=== PATIENT | female | born 1930 | race Caucasian/White ===

== ENCOUNTER 2017-05-02 15:18 | Emergency (ER) | payer MEDICARE ==
--- NOTE | 2017-05-02 17:16 | RAD ---
PORTABLE CHEST ONE VIEW: 05/02/17 at 4:18 p.m. HISTORY: Cough. Bilateral leg pain. FINDINGS/IMPRESSION: Comparison is made with exam of 02/24/15. The heart size is normal. The aorta is tortuous. Small bilateral pleural effusions may be present. N o lobar consolidation, pneumothoraces or kristie pulmonary effusions are identified. POS: [facility]
--- NOTE | 2017-05-02 17:21 | RAD ---
RIGHT FOOT THREE VIEWS: 05/02/17 HISTORY: Trauma, right foot pain. FINDINGS/IMPRESSION: No fracture or dislocation is seen. A plantar calcaneal spur is present. POS: [facility]
[2017-05-02 18:44] LABS: #Eosinphils 0.2 thou/uL (0.0-0.7); #Lymphocytes 1.1 thou/uL (1.20-3.40); #Monocytes 0.7 thou/uL (0.11-0.59); #Neutrophils 6.5 thou/uL (1.40-6.50); %Basophils 0.5 % (0.0-1.0); %Eosinophils 2.2 % (0.0-10.0); %Lymphocytes 12.3 % (21.0-51.0); %Monocytes 8.3 % (0.0-10.0); Hematocrit 34.5 % (36.0-47.0); Mean Platelet Volume 8.1 fL (7.4-10.4); Red Blood Cell (RBC) Count 3.57 mill/uL (4.20-5.40); White Blood Cell (WBC) Count 8.5 thou/uL (4.8-10.8)
[2017-05-02 19:04] LABS: Anion Gap 14 mmol/L (10-20); BUN (Urea Nitrogen) 22 mg/dL (9.8-20.1); Calc. Creatinine Clearance 0 mL/min (70-130); Calcium 10.1 mg/dL (7.8-10.44); Carbon Dioxide 36 mmol/L (23-31); Chloride 95 mmol/L (98-107); Estimated GFR-MDRD 51
== END 2017-05-02 19:27 | disposition home or self-care (01) ==
LOC: ERS 15:18
DX: S90.31XA Contusion of right foot, initial encounter (principal); I50.9 Heart failure, unspecified; I48.91 Unspecified atrial fibrillation; J44.9 Chronic obstructive pulmonary disease, unspecified; Z79.82 Long term (current) use of aspirin; Z79.899 Other long term (current) drug therapy; Z87.891 Personal history of nicotine dependence
CPT/HCPCS: 36415; 71010; 80048; 85025; 93005

== ENCOUNTER 2017-09-07 12:29 | Emergency (ER) | payer MEDICARE ==
[2017-09-07 13:47] LABS: #Basophils 0.1 thou/uL (0.0-0.2); #Eosinphils 0.1 thou/uL (0.0-0.7); #Lymphocytes 0.7 thou/uL (1.20-3.40); #Monocytes 0.6 thou/uL (0.11-0.59); %Basophils 0.7 % (0.0-1.0); %Eosinophils 1.1 % (0.0-10.0); %Lymphocytes 8.5 % (21.0-51.0); %Monocytes 6.7 % (0.0-10.0); %Neutrophils 83.1 % (42.0-75.0); Hemoglobin 10.7 g/dL (12.0-16.0); Mean Corpuscular HGB CONC 30.9 g/dL (32.0-36.0); Mean Corpuscular Hemoglobin 30.2 pg (27.0-31.0); Mean Corpuscular Volume 97.8 fl (81.0-99.0); Mean Platelet Volume 7.9 fL (7.4-10.4); Platelet Count 162 thou/uL (130-400); RBC Distribution Width 12.1 % (11.5-14.5); Red Blood Cell (RBC) Count 3.56 mill/uL (4.20-5.40); White Blood Cell (WBC) Count 8.4 thou/uL (4.8-10.8)
--- NOTE | 2017-09-07 14:02 | RAD ---
PA AND LATERAL CHEST: Date: 09/07/17 HISTORY: Dyspnea, COPD, shortness of breath. FINDINGS: Comparison made with exam of 05/02/17. The heart size is normal. The aorta is tortuous. Changes of COPD are again seen. No lobar consolidati on, pneumothoraces, or pleural effusions are seen. There are degenerative changes in the spine. IMPRESSION: No acute process. POS: [facility]
[2017-09-07 14:11] LABS: ALT (SGPT) 12 U/L (8-55); AST (SGOT) 17 U/L (5-34); Albumin 3.9 g/dL (3.4-4.8); Alkaline Phosphatase 89 U/L (40-150); BUN (Urea Nitrogen) 21 mg/dL (9.8-20.1); Bilirubin, Total 0.4 mg/dL (0.2-1.2); Calc. Creatinine Clearance 0 mL/min (70-130); Calcium 10.2 mg/dL (7.8-10.44); Estimated GFR-MDRD 56; Globulin 3.4 g/dL (2.4-3.5); Glucose 89 mg/dL (83-110); Protein, Total 7.3 g/dL (6.0-8.3)
[2017-09-07 14:18] LABS: CKMB 2.1 ng/mL (0-6.6); Troponin I 0.012 ng/mL (< 0.028)
[2017-09-07 14:20] LABS: Anion Gap 15 mmol/L (10-20); Carbon Dioxide 35 mmol/L (23-31); Chloride 95 mmol/L (98-107); Potassium 4.5 mmol/L (3.5-5.1); Sodium 140 mmol/L (136-145)
== END 2017-09-07 17:17 | disposition home or self-care (01) ==
LOC: ERS 12:29
DX: R42 Dizziness and giddiness (principal); B37.2 Candidiasis of skin and nail; J44.9 Chronic obstructive pulmonary disease, unspecified; I50.9 Heart failure, unspecified; I48.91 Unspecified atrial fibrillation; F17.210 Nicotine dependence, cigarettes, uncomplicated
CPT/HCPCS: 36415; 71046; 80053; 82553; 83880; 84484; 85025; 93005; 94760

== ENCOUNTER 2017-09-19 22:50 | Inpatient (IN) | payer MEDICARE ==
--- NOTE | 2017-09-19 23:51 | CT ---
CT HEAD WITHOUT CONTRAST 09/19/17 Multiple axial tomograms obtained through head without IV enhancement. HISTORY: Unwitnessed fall with dizziness and injury to head. Mild cortical volume loss. Moderately severe chronic ischemic white matter change. No evidence of acu te hemorrhage. No evidence of acute mass or infarction. IMPRESSION: There are chronic changes consistent with age. No acute process is identified. POS: [facility]
--- NOTE | 2017-09-19 23:55 | CT ---
CT CERVICAL SPINE: 09/19/17 Multiple axial tomograms obtained through the cervical spine with multiplanar reconstruction. HISTORY: Unwitnessed fall with dizziness. Hit patient's head with injury to head and neck. There are moderately severe degenerative changes involving the mid cervical spine. Loss of disc space is prominent at C3-4, C4-5, C5-6 and C6-7 levels. There is anterior subluxation of C3 on C4 measure d at approximately 3 to 4 mm. Slight posterior subluxation at C5-6. Spondylitic changes are prominent . Foraminal stenosis is present due to these hypertrophic changes at all of these levels. Encroachmen t on the cord is present at C4-5 and C5-6 due to the hypertrophic spondylitic change. No acute fracture identified. IMPRESSION: Moderate to severe degenerative changes of the cervical spine. Subluxations as noted above appear deg enerative. No acute fracture identified. POS: [facility]
--- NOTE | 2017-09-20 00:02 | CT ---
CT SCAN LUMBAR SPINE: 09/19/17 Multiple axial tomograms obtained through the lumbar spine with multiplanar reconstruction. HISTORY: Unwitnessed fall with injury to back. There is mild compression deformity of the L1 vertebra. This is an age indeterminate compression. The re is mild loss of central and anterior height estimated in the 20% range. There are end plate deform ities involving both superior and inferior end plates of L1 which contribute to the loss of central h eight. There is no retropulsion. The other lumbar vertebrae maintain height. There is a slight anterolisthesis at L4-5. There is loss of disc space at L5-S1. Prominent facet hypertrophy is seen throughout the lumbar spine, most pronoun trevin at L4-5 and L5-S1. Evidence of spondylolysis posteriorly at L5-S1. Moderate to severe central canal stenosis at L4-5 due to the disc bulge and the hypertrophic change. Diffuse disc bulge and spondylosis at L5-S1 also results in moderate central canal stenosis. IMPRESSION: 1. Mild compression of the L1 vertebra is age indeterminate. 2. There is osteopenia and degenerative changes throughout the lumbar spine as described above. Moderate central canal stenosis at L4-5 as noted. 3. 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 POS: [facility]
--- NOTE | 2017-09-20 00:05 | CT ---
CT SCAN THORACIC SPINE: 09/19/17 Multiple axial tomograms obtained through the thoracic spine with multiplanar reconstruction. FINDINGS: There is severe compression deformity of the T6 vertebra. This is a wedge type compression with sever e loss of central and anterior height estimated in the 75% range. There is irregularity of the breaker operator ior cortex of this vertebra which might indicate an acute compression fracture. Minimal retropulsion at the posterior cortex; however, no central canal stenosis. The other thoracic vertebrae maintain height and alignment. There are degenerative changes at all lev els. No other compression fracture identified. IMPRESSION: Severe compression deformity of the T6 vertebra. Buckling of the posterior cortex is seen which may i ndicate an acute compression fracture. Slight retropulsion; however, no central canal stenosis. POS: [facility]
--- NOTE | 2017-09-20 00:07 | RAD ---
PORTABLE CHEST: 09/19/17 HISTORY: Unwitnessed fall with dizziness. Mild cardiomegaly. Mild vascular congestion. Interstitial prominence suggests mild interstitial edema . No confluent infiltrate. IMPRESSION: Cardiomegaly with mild vascular congestion. POS: [facility]
[2017-09-20 00:29] LABS: #Lymphocytes 0.3 thou/uL (1.20-3.40); #Monocytes 0.7 thou/uL (0.11-0.59); %Basophils 0.2 % (0.0-1.0); %Eosinophils 0.3 % (0.0-10.0); %Lymphocytes 2.8 % (21.0-51.0); %Monocytes 5.4 % (0.0-10.0); %Neutrophils 91.3 % (42.0-75.0); Hemoglobin 10.8 g/dL (12.0-16.0); Mean Corpuscular HGB CONC 31.5 g/dL (32.0-36.0); Mean Corpuscular Volume 98.2 fl (81.0-99.0); Mean Platelet Volume 8.4 fL (7.4-10.4); Platelet Count 137 thou/uL (130-400); RBC Distribution Width 12.4 % (11.5-14.5); White Blood Cell (WBC) Count 12.1 thou/uL (4.8-10.8)
[2017-09-20 00:34] LABS: ALT (SGPT) 17 U/L (8-55); AST (SGOT) 21 U/L (5-34); Alkaline Phosphatase 94 U/L (40-150); Anion Gap 14 mmol/L (10-20); BUN (Urea Nitrogen) 27 mg/dL (9.8-20.1); Bilirubin, Total 0.3 mg/dL (0.2-1.2); Calc. Creatinine Clearance 0 mL/min (70-130); Calcium 9.6 mg/dL (7.8-10.44); Carbon Dioxide 35 mmol/L (23-31); Chloride 98 mmol/L (98-107); Estimated GFR-MDRD 49; Globulin 3.6 g/dL (2.4-3.5); Glucose 143 mg/dL (83-110); Potassium 4.8 mmol/L (3.5-5.1); Protein, Total 7.6 g/dL (6.0-8.3); Sodium 142 mmol/L (136-145)
[2017-09-20 00:39] LABS: CKMB 2.7 ng/mL (0-6.6); Troponin I 0.047 ng/mL (< 0.028)
[2017-09-20] MEDS ORDERED: Acetaminophen 500 MG TAB ONE (01:42)
[2017-09-20] MEDS ORDERED: Furosemide 40 MG/4 ML VIAL ONE (01:44)
[2017-09-20] MEDS ORDERED: Ondansetron HCl/PF 4 MG/2 ML Vial IVP PRN ×2 (03:20→03:28)
[2017-09-20] MEDS ORDERED: Acetaminophen 325 MG TAB PO PRN (03:20)
[2017-09-20] MEDS ORDERED: Ondansetron ODT 4 MG TAB SL PRN (03:20)
[2017-09-20] MEDS ORDERED: Morphine IR 10 MG/5 ML UDCUP PO PRN (03:24)
[2017-09-20] MEDS ORDERED: Ondansetron ODT 4 MG TAB PO PRN (03:28)
[2017-09-20] MEDS ORDERED: Dextrose 50% Abboject 50 ML SYRINGE SLOW IVP PRN (03:28)
[2017-09-20] MEDS ORDERED: Promethazine HCl 25 MG/ML VIAL IM PRN (03:28)
[2017-09-20] MEDS ORDERED: Dextrose 5% in Water 1,000 ML IV PRN (03:28)
[2017-09-20] MEDS ORDERED: hydrALAZINE 20 MG/ML VIAL SLOW IVP PRN (03:28)
[2017-09-20 04:49] VITALS: BMI 25.9
[2017-09-20 05:03] LABS: #Lymphocytes 0.6 thou/uL (1.20-3.40); #Monocytes 0.8 thou/uL (0.11-0.59); %Basophils 0.2 % (0.0-1.0); %Eosinophils 0.3 % (0.0-10.0); %Monocytes 7.3 % (0.0-10.0); %Neutrophils 87.1 % (42.0-75.0); Hemoglobin 9.9 g/dL (12.0-16.0); Mean Corpuscular HGB CONC 31.7 g/dL (32.0-36.0); Mean Corpuscular Hemoglobin 30.9 pg (27.0-31.0); Mean Corpuscular Volume 97.6 fl (81.0-99.0); Mean Platelet Volume 8.3 fL (7.4-10.4); Platelet Count 128 thou/uL (130-400); RBC Distribution Width 12.3 % (11.5-14.5); Red Blood Cell (RBC) Count 3.21 mill/uL (4.20-5.40); White Blood Cell (WBC) Count 11.5 thou/uL (4.8-10.8)
[2017-09-20 05:19] LABS: BUN (Urea Nitrogen) 25 mg/dL (9.8-20.1); Calc. Creatinine Clearance 42 mL/min (70-130); Calcium 9.2 mg/dL (7.8-10.44); Estimated GFR-MDRD 56; Glucose 118 mg/dL (83-110)
[2017-09-20 05:30] LABS: Anion Gap 14 mmol/L (10-20); Carbon Dioxide 35 mmol/L (23-31); Chloride 98 mmol/L (98-107); Potassium 4.4 mmol/L (3.5-5.1); Sodium 143 mmol/L (136-145)
[2017-09-20] MEDS: Levothyroxine Sodium 100 MCG TAB PO SCH (06:01)
--- NOTE | 2017-09-20 06:57 | HP ---
Leon Craven PA-C, dictating for Jim Teran MD DATE OF SERVICE: 09/20/2017 CHIEF COMPLAINT: Evaluation status post fall. HISTORY OF PRESENT ILLNESS: An 87-year-old female with history of atrial fibrillation, COPD, CHF, no w presented with 2 falls today. The patient reports she began to feel dizzy upon standing today and she then subsequently fell backwards. Hitting her upper back, no hip pain, no LOC or head injury at this time. The patient denies any headache, chest pain, or shortness of breath prior to or after the fall. PAST MEDICAL HISTORY: Include COPD, CHF, atrial fibrillation, macular degeneration. She is on home O2. PAST SURGICAL HISTORY: She denies. PSYCHIATRIC HISTORY: She denies. SOCIAL HISTORY: Denies any alcohol or drug use. She is a former tobacco user. REVIEW OF SYSTEMS: All 10 systems reviewed otherwise stated in HPI were negative. PHYSICAL EXAMINATION: VITAL SIGNS: Current vital signs, blood pressure 144/49, heart rate 94, respiratory rate 25, tempera ture 98.8, 4/10 pain, 95% on 2 liters of oxygen. HEENT: Atraumatic, normocephalic. No JVD, no masses. Trachea is midline. RESPIRATORY: She has got rhonchi/slight rales in the bases of the lungs throughout bilaterally. ABDOMEN: Soft, nontender, nondistended. BACK: Back pain. She is kyphotic. She has tenderness in the midline of the mid back. MUSCULOSKELETAL: Upper extremities void of any injury, 5/5 strength. Lower extremity, 5/5 strength. Sensation is intact. NEUROLOGIC: GCS 15. LABORATORY DATA: Hematology: WBC of 12.1, hemoglobin of 10.8, hematocrit 34.4, platelet count 137. Chemistries: Sodium 142, potassium 4.8, chloride 98, bicarbonate 35, BUN 27, creatinine 1.06, gluco se 143. RADIOLOGIC FINDINGS: Thoracic CT showed a T6 severe burst fracture with buckling into the posterior cortex, acute compression fracture. Lumbar spine CT showed L1 mild compression fracture, age indeter minate. Osteopenia and abdominal aorta is calcified tortuous and there was aneurysm dilatation measu ring up to 3 cm. Cervical spine, moderate to severe degenerative changes cervical spine, no acute fracture. Brain CT, no acute process. Chest x-ray showed mild vascular congestion, cardiomegaly. ASSESSMENT: 1. Status post fall, ground level. 2. Presyncope. 3. Congestive heart failure exacerbation. 4. C6 severe compression fracture. 5. L1 compression fracture. 6. History of chronic obstructive pulmonary disease. 7. On home O2. PLAN: Plan will be to continue to place the patient in signals collector/analyst for 24 hours. We will inve stigate possible syncopal reasons. Consult Neurosurgery for the spinal fracture. Optimize her pain with p.o. and IV analgesics. Restart home medications when available. Place patient on gastritis DV T prophylaxis when appropriate. Consult PT and OT, once Neurosurgery recommendations are in. DISCHARGE DISPOSITION: Will be a consult with case management. The above patient was discussed with Dr. Teran and agreed with the above plan.
--- NOTE | 2017-09-20 08:20 | CON ---
DATE OF CONSULTATION: 09/20/2017 CHIEF COMPLAINT: Evaluation post fall, status post T6 compression fracture with 75% loss of vertical height. HISTORY OF PRESENT ILLNESS: Ms. Dominguez is an 87-year-old female with a history of atrial fibrillati on, COPD, CHF, who now presented with 2 days of falls. The patient has been falling intermittently i n the past week; however, yesterday she began to feel dizzy upon standing and subsequently fell backw ards and landed on her backside. She has no hip pain. Denies any loss of consciousness or head inju ry at this time. The patient denies any headaches, chest pain, shortness of breath prior to the fall or after the fall. On physical exam, she has tenderness to palpation of the thoracic spine or the T6 region. CT of the thoracic spine shows a T6 compression fracture with vertical height loss at 75%. Neurosurgery was co nsulted for this finding on CT scan. PAST MEDICAL HISTORY: Includes COPD, CHF, atrial fibrillation, macular degeneration, and she is curr ently on home oxygen. PSYCHIATRIC HISTORY: Denies any psychiatric history. PAST SURGICAL HISTORY: Denies any surgical history. SOCIAL HISTORY: Denies alcohol or drug use. She is a former tobacco user. REVIEW OF SYSTEMS: The patient reports thoracic back pain. Reports a presyncopal episode and fall. All other review of systems negative, unless stated in the above HPI. PHYSICAL EXAMINATION: VITAL SIGNS: Reviewed. Her temperature is 97.9, pulse 77, respirations 24, O2 flow rate is 2 on yuly al cannula, blood pressure is 151/65. Current pain is 6/10. GENERAL: The patient is alert and oriented x4. She is in no acute distress at this time. Daughter is in room and she has GCS 15. HEENT: Normocephalic, atraumatic. Hearing intact. Moist mucous membranes. Trachea is midline. EYES: Pupils are equal and reactive to light. Extraocular muscles are intact. Sclerae is white, no nicteric. CARDIOVASCULAR: The patient has regular rate and rhythm. EXTREMITIES: No distal cyanosis or clubbing noted in the upper and lower extremities bilaterally. P ulses are +2 in the brachial and radial pulses in the upper extremities and posterior tibial pulses i n the lower extremities. RESPIRATORY: The patient has bilateral symmetric chest rise. Appears to have no shortness of breath . NEUROLOGIC: Cranial nerves II-XII are grossly intact. Her speech is fluent and she answers question s appropriately. She has no dermatomal or level of sensory loss in the thoracic spine or lower extre mities. She is tender to palpation of the midline lumbar spine. There are no focal or sensory defic its. She has severe degenerative changes of the cervical spine. No acute fracture. CT of the brain shows no acute process. Chest x-ray shows mild vascular congestion and cardiomegaly. IMPRESSION: Status post fall from the ground level, presyncopal episode; congestive heart failure ex acerbation; T7 severe compression fracture of 75% height loss; L1 compression fracture, age indetermi nereida; history of chronic obstructive pulmonary disease, on home oxygen. PLAN: From a neurosurgical standpoint, there is no surgical emergency at this time. Patient is neur ologically intact. We will treat this fracture with a clam-shell TLSO brace to increase abdominal pr essure and limit rotation and movement of the T7 vertebrae, which should decrease the pain. We will get an x-ray in the TLSO brace after it is applied and get repeat x-rays at 4 weeks and 3 months to tony sotelo to see if the vertebrae is healing and the alignment is still adequate. In the meantime, pain m anagement is reasonable. If there are any further questions, please feel free to contact Neurosurger alex
[2017-09-20 08:37] LABS: CKMB 2.4 ng/mL (0-6.6); Troponin I 0.092 ng/mL (< 0.028)
[2017-09-20] MEDS: Famotidine 20 MG TAB PO SCH ×2 (09:00→22:09)
[2017-09-20] MEDS: Ferrous Sulfate 325 MG TAB PO SCH (09:01)
[2017-09-20] MEDS: Furosemide 40 MG TAB PO SCH (09:01)
[2017-09-20] MEDS: Amiodarone 200 MG TAB PO SCH (09:01)
[2017-09-20] MEDS: Calcium Carbonate + Vit D 1 TAB PO SCH ×2 (09:01→22:08)
[2017-09-20] MEDS: Potassium Chloride 20 MEQ TAB PO SCH ×2 (09:01→22:12)
[2017-09-20 11:34] LABS: CKMB 2.4 ng/mL (0-6.6); Troponin I 0.065 ng/mL (< 0.028)
[2017-09-20] MEDS ORDERED: traMADol HCl 50 MG TAB PO PRN (13:17)
--- NOTE | 2017-09-20 15:25 | PRG ---
DATE OF SERVICE: 09/20/2017 ATTENDING PHYSICIAN: Dr. Moe Chavez. SUBJECTIVE: The patient is an 87-year-old female, who reports that she got dizzy and had 2 falls yesterday. She apparently fell backwards hitting her upper back. She had upper back pain at that time. She was transported to [facility] where workup identified a T6 compression fracture. She was admitted to the hospital by Trauma services. A consult was made to Dr. Short. She was seen by Neurosurgery. No neurosurgical intervention was recommended. She was recommended for a TLSO brace placement. OBJECTIVE: VITAL SIGNS: Temperature 98.9, pulse 74, respirations 18, O2 sat 95% on 2 liters nasal cannula, blood pressure 122/54. CONSTITUTIONAL: Elderly female sitting up in bed, in no acute distress. HEENT: Atraumatic, normocephalic. RESPIRATORY: Coarse bilateral breath sounds, upper lobes. No respiratory distress. No shortness of breath. CARDIOVASCULAR: Heart sounds normal. Telemetry shows sinus rhythm, no ectopy. ABDOMEN: Soft, nontender, nondistended. BACK: Pain to palpation to mid upper spine. MUSCULOSKELETAL: Moves all extremities well. No sensory or motor deficits. NEUROLOGIC: GCS of 15, awake, alert, and oriented x3. ASSESSMENT: 1. Status post ground-level fall, multiple. 2. C6 compression fracture. 3. L1 compression fracture. 4. History of chronic obstructive pulmonary disease, on chronic home O2, present on admission. 5. Orthostatic hypotension. PLAN: 1. Appreciate neurosurgical recommendations. 2. Continue to monitor on telemetry unit. 3. Schedule Tylenol for analgesia. The patient does not wish to have strong narcotic pain medication. Tramadol p.r.n. if patient desires. 4. Case management for discharge planning. 5. Rehab screening in progress. 6. Schedule DuoNeb. The patient was seen and examined with Dr. Chavez, who agrees with the assessment and plan. [facility]
--- NOTE | 2017-09-20 17:14 | PRG ---
DATE OF SERVICE: 09/20/2017 NEUROSURGERY PROGRESS NOTE HISTORY: I personally interviewed and examined the patient and agree with documentation of Delonte moyer PA-C, dated 09/20/2017. Briefly, Ms. Trudy Dominguez is an 87-year-old woman who lives alone and was recently in our emergency department 2 weeks ago for falls and was brought back to our emergency department with another fall a nd back pain. Imaging revealed a T6 compression fracture and Neurosurgery was consulted. On examination, Ms. Dominguez has motor function in lower extremities and sensation. There is no senso ry level. There is significant tenderness at T6 posteriorly. There are few issues to address Ms. Dominguez before she leaves the hospital. At first, her pain has t o be under better control and I think we can manage that with a combination of medication, consultati on to pain management, and bracing. For the first 1-2 weeks, if that does a good job in alleviating the pain, then we will continue with that management paradigm. If the pain is uncontrolled in spite of those interventions, she could be a candidate for a cement augmentation of the T6 vertebral body v ia kyphoplasty or vertebroplasty. Our colleagues in pain management perform those procedures as do comfort villarreal. The next issue to think about is prevention of the future fracture. Physical therapy for balance, ev aluation for orthostasis, and treatment of osteoporosis with all the beneficial in preventing the fut ure for spine fracture. Finally, the issue to address is her independence. Her daughter has real reservations about returnin g her to life without anyone else at her apartment. assisted living or placement in a facility in ich she gets more help might be something to consider on this hospitalization. Finally, I do not think neurosurgical intervention is warranted for this currently, will follow up in our clinic with x-rays within 1-2 weeks.
--- NOTE | 2017-09-20 19:15 | RAD ---
THORACIC SPINE 4 VIEWS: Date: 09/20/17 HISTORY: Follow-up T6 compression fracture. FINDINGS/IMPRESSION: The compression deformity involving the T6 vertebra is again noted. This shows significant wedge comp ression with loss of anterior height over 75%. No significant retropulsion. The other vertebra mainta in height. No evidence of significant change when compared to yesterday's CT scan. POS: [facility]
[2017-09-20] MEDS: Acetaminophen 500 MG TAB PO PRN (19:33)
[2017-09-21] MEDS: Levothyroxine Sodium 100 MCG TAB PO SCH (06:19)
[2017-09-21] MEDS ORDERED: Gadobenate Dimeglumine 529 MG/1 ML (20ML VIAL) ONE (07:53)
[2017-09-21] MEDS: Famotidine 20 MG TAB PO SCH ×2 (08:44→21:48)
[2017-09-21] MEDS: Calcium Carbonate + Vit D 1 TAB PO SCH ×2 (08:44→21:48)
[2017-09-21] MEDS: Ferrous Sulfate 325 MG TAB PO SCH (08:45)
[2017-09-21] MEDS: Furosemide 40 MG TAB PO SCH (08:45)
[2017-09-21] MEDS: Amiodarone 200 MG TAB PO SCH (08:46)
[2017-09-21] MEDS: Potassium Chloride 20 MEQ TAB PO SCH ×2 (08:46→21:48)
--- NOTE | 2017-09-21 12:17 | PRG ---
DATE OF SERVICE: 09/21/2017 SUBJECTIVE: Ms. Dominguez is an 87-year-old woman with history of chronic atrial fibrillation and COPD . Patient was admitted yesterday following a ground level fall. She sustained a T6 compression frac ture for which a TLSO brace has been customized. She moves all extremities and answers questions jose carlos ropriately. She reports adequate pain control. She is tolerating diet, having normal bowel and urin nimo function. OBJECTIVE: VITAL SIGNS: This morning includes blood pressure 121/64, pulse is 80, respiratory rate is 20, tempe rature 98.4 degrees Fahrenheit, oxygen saturation is 93% on room air. HEENT: Examination reveals normocephalic and atraumatic. Pupils are equal, round, reactive to light and accommodation. HEART: Reveals irregular rate and rhythm. CHEST: Clear to auscultation bilaterally. CARDIOVASCULAR: Breathing is regular and unlabored. ABDOMEN: Soft, nontender and nondistended. EXTREMITIES: Reveals 2+ radial and pedal pulses bilaterally. No ankle edema is present. NEUROLOGIC: Examination reveals no focal deficits present. LABORATORY DATA: Laboratory findings were not obtained today. IMPRESSION: 1. Status post ground level fall. 2. T6 compression fracture without any neurological deficits. 3. Rate controlled chronic atrial fibrillation. 4. History of chronic obstructive pulmonary disease. 5. History of chronic congestive heart failure. PLAN: Physical and occupational therapy to increase activity. The patient is being evaluated by PM&R for possible inpatient rehabilitation versus palliative care.
--- NOTE | 2017-09-21 20:23 | CT ---
CT HEAD NONCONTRAST: History: Dizziness. Altered mental status. Comparison: 09-19-17 FINDINGS: There is no evidence of acute intracranial hemorrhage or infarct. Diffuse cortical atrophy and chroni c ischemic small vessel disease are again demonstrated. There is no mass effect or shift of midline s tructures. Visualized paranasal sinuses remain well aerated. IMPRESSION: No acute intracranial abnormalities are demonstrated on noncontrast CT head. POS: [facility]
--- NOTE | 2017-09-21 21:39 | MRI ---
MRI BRAIN WITH AND WITHOUT GADOLINIUM CONTRAST: Date: 09-21-17 Performed on emergency basis at 2106 hours. History: Altered mental status. Dizziness. FINDINGS: There is no evidence of acute intracranial hemorrhage or infarct. The ventricles appear normal in siz e, shape, and position. Chronic ischemic small vessel disease is apparent within the periventricular white matter of each cerebral hemisphere. There is no mass effect, shift of midline structures or abn ormal areas of contrast enhancement. IMPRESSION: No acute intracranial abnormalities are demonstrated. POS: [facility]
[2017-09-21 22:42] LABS: BUN (Urea Nitrogen) 18 mg/dL (9.8-20.1); Calc. Creatinine Clearance 43 mL/min (70-130); Estimated GFR-MDRD 58; Glucose 126 mg/dL (83-110)
[2017-09-21 22:59] LABS: Chloride 97 mmol/L (98-107); Potassium 4.2 mmol/L (3.5-5.1); Sodium 142 mmol/L (136-145)
[2017-09-21 23:02] LABS: Anion Gap 13 mmol/L (10-20); Carbon Dioxide 36 mmol/L (23-31)
--- NOTE | 2017-09-21 23:55 | PRG ---
DATE OF SERVICE: 09/21/2017 SUBJECTIVE: This is an 87-year-old female was admitted by the Trauma Team status post multiple falls . The patient was found to have T6 and L1 fracture. The patient had a history of episodic dizziness for which she has been worked up in the past without an obvious cause found. Tonight, she developed sudden onset of dizziness while sitting in her bed just prior to shift change. Associated with this was visual disturbances and color change. The patient had no noted focal deficit, was hemodynamical ly stable and upon my evaluation, the dizziness had resolved and vision changes were intermittent. OBJECTIVE: VITAL SIGNS: Temperature 97.6, pulse 86, respirations 18, O2 sat 96% on 3 liter vial nasal cannula, blood pressure 159/64. GENERAL: The patient is an elderly female, resting in bed, in no acute distress, breathing is nonlab ored. PULMONARY: Symmetric chest rise. CARDIOVASCULAR: Regular rate and rhythm. GASTROINTESTINAL: Abdomen is soft, nontender, nondistended. MUSCULOSKELETAL: Moves all extremities x4. NEUROLOGIC: GCS 15. No focal deficit is noted. There is no pronator drift. Strength is 5/5 in all 4 extremities. LABORATORY FINDINGS: Telemetry reveals normal sinus rhythm. ASSESSMENT: As documented in daily progress note with the addition of dizziness and visual disturban luis antonio. PLAN: Evaluate patient's medication list for possible hallucinogenic substances. CT of the head has been ordered by dayshift team and results are pending. After discussion with Dr. Chavez, we will add an MRI with and without contrast. Continue to monitor.
[2017-09-22 01:44] LABS: Bilirubin Negative (Negative); Blood, Urine Trace (Negative); Glucose, Urine (Dipstick) Negative (Negative); Leukocyte Trace (Negative); Nitrite Negative (Negative); Protein, Urine (Dipstick) Trace mg/dL (Neg-Trace); Specific Gravity, Urine 1.015 (1.005-1.030); Urobilinogen 0.2 mg/dL (0.2-1.0); pH, Urine 8.5 (5.0-9.0)
[2017-09-22 01:45] LABS: Clarity Clear (Clear)
[2017-09-22 01:47] LABS: Bacteria/HPF None Seen HPF (None Seen); Hyaline Casts/LPF NONE SEEN LPF (0-3 Hyaline); RBC/HPF 0-3 HPF (0-3); Squamous Epithelial 0-3 HPF (0-3); WBC/HPF 0-3 HPF (0-3)
[2017-09-22] MEDS: Levothyroxine Sodium 100 MCG TAB PO SCH (05:26)
[2017-09-22] MEDS: Potassium Chloride 20 MEQ TAB PO SCH ×2 (09:51→20:11)
[2017-09-22] MEDS: Amiodarone 200 MG TAB PO SCH (09:51)
[2017-09-22] MEDS: Calcium Carbonate + Vit D 1 TAB PO SCH ×2 (09:51→20:11)
[2017-09-22] MEDS: Furosemide 40 MG TAB PO SCH (09:51)
[2017-09-22] MEDS: Ferrous Sulfate 325 MG TAB PO SCH (09:52)
--- NOTE | 2017-09-22 14:26 | PQF ---
CLINICAL DOCUMENTATION IMPROVEMENT CLARIFICATION FORM: ICD-10 Updated PLEASE DO AN ADDENDUM TO THE PROGRESS NOTE WITH ANY DOCUMENTATION UPDATES OR ADDITIONS AND CARRY THROUGH TO DC SUMMARY. THANK YOU. DATE: 09/22/17 ATTN: Dr. Chavez Please exercise your independent, professional judgment in responding to the clarification form. Clinical indicators are provided on the bottom of this form for your review Please check appropriate box(s): HEART FAILURE: A. TYPE: [ X] Systolic / HFrEF [ ] Diastolic / HFpEF [ ] Combined Systolic / Diastolic [ ] Other diagnosis [ ] Unable to determine In addition, please specify: Present on Admission (POA): [ X ] Yes [ ] No [ ] Unable to determine For continuity of documentation, please document condition throughout progress notes and discharge summary. Thank You. CLINICAL INDICATORS - SIGNS / SYMPTOMS / LABS H&P: CHEST X-RAY SHOWED MILD VASCULAR CONGESTION, CARDIOMEGALY. CONGESTIVE HEART FAILURE EXACERBATION RISKS: H&P: HX COPD, CHF, ATRIAL FIB. SHE IS ON HOME O2. STATUS POST FALL, GROUND LEVEL. PRESYNCOPE. 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 CPOE 09/20: LASIX 40MG PO DAILY Thank you, Kathy (This form is maintained as a part of the permanent medical record) 2015 [employer], [address]. All Rights Reserved Kathy Blackwood RN, BSN [email or web address] Office: [phone] [facility]
--- NOTE | 2017-09-22 14:51 | PQF ---
CLINICAL DOCUMENTATION IMPROVEMENT CLARIFICATION FORM: ICD-10 Updated PLEASE DO AN ADDENDUM TO THE PROGRESS NOTE WITH ANY DOCUMENTATION UPDATES OR ADDITIONS AND CARRY THROUGH TO DC SUMMARY. THANK YOU. DATE: 09/22/17 ATTN: Dr. Chavez Please exercise your independent, professional judgment in responding to the clarification form. Clinical indicators are provided on the bottom of this form for your review Please check appropriate box(s): [ X] Chronic Respiratory Failure only [ X ] with Hypoxia [ ] with Hypercapnia [ ] Other diagnosis [ ] Unable to determine In addition, please specify: Present on Admission (POA): [ X ] Yes [ ] No [ ] Unable to determine For continuity of documentation, please document condition throughout progress notes and discharge summary. Thank You. CLINICAL INDICATORS - SIGNS / SYMPTOMS / LABS H&P: SHE IS ON HOME O2. RESP: 25, 95% ON 2 LITERS OF OXYGEN RISKS: H&P: HX COPD, CHF, ATRIAL FIB. SHE IS ON HOME O2. CONGESTIVE HEART FAILURE EXACERBATION. TREATMENT: CPOE 09/20: RESP: 02 TO KEEP SATS 92% CPOE 09/20: DUONEB TID. Thank you, Kathy (This form is maintained as a part of the permanent medical record) 2015 [employer]. All Rights Reserved Kathy Blackwood RN, BSN [email or web address] Office: [phone] [facility]
--- NOTE | 2017-09-22 17:36 | PRG ---
DATE OF SERVICE: 09/22/2017 SUBJECTIVE: Ms. Dominguez is an 87-year-old woman who sustained T6 and L1 fractures following a ground level fall. Fractures are being managed nonoperatively with a TLSO brace. The patient had an episo de of dizziness and lower extremity weakness last night. Workup included an MRI of the brain, which was unremarkable. This morning, she reports adequate pain control. Physical therapy was present at bedside, fitting her with the TLSO brace. The patient denies any dyspnea or syncope at this time. S he is tolerating oral intake. OBJECTIVE: VITAL SIGNS: Includes blood pressure 177/88, pulse 89, respiratory rate 24, temperature is 98.5 degr ees Fahrenheit, oxygen saturation is 92% on room air. HEENT: Reveals normocephalic and atraumatic. The pupils are equal, round, and reactive to light and accommodation. HEART: Reveals irregular rate and irregular rhythm. CHEST: Lungs clear to auscultation bilaterally. Breathing regular and unlabored. ABDOMEN: Soft, nontender, nondistended, bowel sounds in all four quadrants appear normoactive. NEUROLOGIC: Reveals no focal deficits present. IMPRESSION: 1. T4 compression fractures status post ground level fall. 2. Chronic respiratory insufficiency with hypoxia, O2 dependent. PLAN: 1. Continue physical and occupational therapy and increase activity as tolerated. 2. The patient has been evaluated for placement at a [facility] facility where she will continu e to recover. 3. Above findings and plan discussed with the patient who indicates understanding of information giv en. 4. I answered their questions.
[2017-09-22] MEDS: Acetaminophen 500 MG TAB PO PRN (18:18)
[2017-09-22] MEDS ORDERED: Famotidine 20 MG TAB PO SCH (21:00)
[2017-09-22] MEDS ORDERED: Melatonin 3 MG TAB PO SCH (21:00)
[2017-09-23] MEDS: Acetaminophen 500 MG TAB PO PRN ×2 (00:11→10:25)
[2017-09-23] MEDS: Levothyroxine Sodium 100 MCG TAB PO SCH (06:05)
[2017-09-23] MEDS: Calcium Carbonate + Vit D 1 TAB PO SCH (08:50)
[2017-09-23] MEDS: Amiodarone 200 MG TAB PO SCH (08:50)
[2017-09-23] MEDS: Ferrous Sulfate 325 MG TAB PO SCH (08:51)
[2017-09-23] MEDS: Furosemide 40 MG TAB PO SCH (08:54)
[2017-09-23] MEDS: Potassium Chloride 20 MEQ TAB PO SCH (08:56)
[2017-09-23] MEDS ORDERED: Polyethylene Glycol 3350 17 GM Packet PO SCH (09:00)
[2017-09-23] MEDS ORDERED: Senokot 8.6 MG TAB PO SCH (09:00)
[2017-09-23 15:10] VITALS: BP 123/62; TEMP 97.7
--- NOTE | 2017-09-23 19:53 | DIS-2 ---
DATE OF ADMISSION: 09/20/2017 DATE OF DISCHARGE: 09/23/2017 ADMITTING PHYSICIAN: Dr. Jim Teran. DISCHARGING PHYSICIAN: Dr. Moe Chavez. CHIEF COMPLAINT: Evaluation of status post fall. HOSPITAL COURSE: The patient is an 87-year-old female with a history of atrial fibrillation, COPD, C HF, who presented to the ED with a ground level falls x2. She reportedly had begun to feel dizzy upo n standing and then subsequently fell backwards landing on her upper back. She had no loss of consci ousness or head injury. Radiographic evaluation in the [facility] showed a severe T6 burst fractu re with buckling into the posterior cortex, also showed an L1 mild compression fracture, age indeterm inate. Neurosurgery was consulted and recommended TLSO bracing. There was no surgical indication fo r this injury. The patient was admitted to telemetry for monitoring and for optimization of pain con trol. The patient was discharged on 09/23/2017 to a senior living facility in stable condition. DISCHARGE MEDICATIONS: The patient was discharged with all of her inpatient medications. Please see EMR for details. The patient was discontinued off of aspirin 81 mg daily and started on aspirin 81 mg b.i.d. ACTIVITY RESTRICTIONS: The patient has orthopedic limitations including TLSO at all times when out o f bed. This is to be applied while supine and using log roll for transfers. NOURISHMENT INSTRUCTIONS: The patient is on a fluid restriction diet of 1200 mL per day. The patien t is also on a heart healthy diet with low sodium. THERAPIES: Patient will receive occupational and physical therapy while in senior living. EQUIPMENT AND SUPPLIES: The patient was discharged with a TLSO brace. REFERRALS: The patient is to follow up with Dr. Jocelin Ovalle, her primary care provider in 7 days. Th e patient also scheduled to see Dr. Short in 14 days. The patient will also need a follow up wit h x-rays at 4 weeks and 3 months to ensure that the vertebrae are healing appropriately. This patient was seen and examined on rounds this morning with Dr. Moe Chavez who agrees with this discharge plan.
[2017-09-23] MEDS ORDERED: Aspirin 81 mg Enteric Coated Tablet PO SCH (21:00)
--- NOTE | 2017-09-26 15:14 | EKG ---
Test Reason : FALL Blood Pressure : / mmHG Vent. Rate : 103 BPM Atrial Rate : 103 BPM P-R Int : 176 ms QRS Dur : 100 ms QT Int : 370 ms P-R-T Axes : 114 -29 045 degrees QTc Int : 484 ms Sinus tachycardia Incomplete right bundle branch block Septal infarct , age undetermined Abnormal ECG Confirmed by PITA DIAZ ([id number]), video effects editor JACOBO GUNDERSON ([id number]) on 09/26/2017 3:14:15 PM Referred By: Confirmed By:PITA DIAZ
== END 2017-09-23 20:12 | DRG 551 ==
LOC: ERS 22:50 → 2SE 09-20 01:40
PROVIDERS: ADMIT Specialist; ATTEND Specialist
DX: S22.051A Stable burst fracture of T5-T6 vertebra, initial encounter for closed fracture (principal); I50.23 Acute on chronic systolic (congestive) heart failure; J96.11 Chronic respiratory failure with hypoxia; I48.2 Chronic atrial fibrillation; Z99.81 Dependence on supplemental oxygen; J44.9 Chronic obstructive pulmonary disease, unspecified; H35.30 Unspecified macular degeneration; R42 Dizziness and giddiness; Z87.891 Personal history of nicotine dependence; Z79.82 Long term (current) use of aspirin; Z79.899 Other long term (current) drug therapy; W18.39XA Other fall on same level, initial encounter
CPT/HCPCS: 36415; 70450; 70553; 71045; 72070; 72125; 72128; 72131; 80048; 80053; 81001; 82553; 83880; 84484; 85025; 93005; 94640; 96374; A4216; A9579; G0390; G8978-GP-CM; G8979-GP-CK; G8987-GO-CL; G8988-GO-CJ; J1940; J7620; L0639

== ENCOUNTER 2017-10-19 13:34 | Outpatient (CLI) | payer SELFPAY ==
--- NOTE | 2017-10-19 16:18 | RAD ---
THREE VIEWS OF THE THORACIC SPINE: INDICATIONS: History of thoracic compression fracture. COMPARISON: Prior exam dated 09/20/2017. FINDINGS: The T6 compression fracture is unchanged. Diffuse osteopenia and accentuated kyphosis is similar. T horacolumbar scoliosis is similar appearing. IMPRESSION: Stable T6 compression fracture. POS: [facility]
== END 2017-10-19 13:35 | disposition home or self-care (01) ==
LOC: TBSIIMAG 13:34
PROVIDERS: ATTEND Neurological Surgery
DX: M48.54XA Collapsed vertebra, not elsewhere classified, thoracic region, initial encounter for fracture (principal)
CPT/HCPCS: 72070

== ENCOUNTER 2017-11-16 14:08 | Outpatient (CLI) | payer MEDICARE ==
--- NOTE | 2017-11-16 15:57 | RAD ---
THORACIC SPINE TWO VIEWS: History: Collapsed vertebra. N48.568 Comparison: 09-29-17 FINDINGS: Similar appearance of the complete thoracic T6 fracture. No other fracture is appreciated. IMPRESSION: Near complete collapse of the T6 compression fracture. POS: [facility]
== END 2017-11-16 14:09 | disposition home or self-care (01) ==
LOC: TBSIIMAG 14:08
PROVIDERS: ATTEND Neurological Surgery
DX: M48.56XD Collapsed vertebra, not elsewhere classified, lumbar region, subsequent encounter for fracture with routine healing (principal); S22.058D Other fracture of T5-T6 vertebra, subsequent encounter for fracture with routine healing
CPT/HCPCS: 72072

== ENCOUNTER 2018-05-16 05:27 | Emergency (ER) | payer MEDICARE ==
[2018-05-16 06:19] LABS: #Basophils 0.1 thou/uL (0.0-0.2); #Eosinphils 0.2 thou/uL (0.0-0.7); #Lymphocytes 0.9 thou/uL (1.20-3.40); #Monocytes 0.5 thou/uL (0.11-0.59); #Neutrophils 4.4 thou/uL (1.40-6.50); %Eosinophils 3.3 % (0.0-10.0); %Lymphocytes 14.6 % (21.0-51.0); %Monocytes 8.2 % (0.0-10.0); Hemoglobin 9.6 g/dL (12.0-16.0); Mean Corpuscular HGB CONC 31.6 g/dL (32.0-36.0); Mean Corpuscular Hemoglobin 31.1 pg (27.0-31.0); Mean Corpuscular Volume 98.5 fL (78.0-98.0); Mean Platelet Volume 8.7 fL (7.4-10.4); Platelet Count 129 thou/uL (130-400); Red Blood Cell (RBC) Count 3.07 mill/uL (4.20-5.40); White Blood Cell (WBC) Count 6.1 thou/uL (4.8-10.8)
[2018-05-16 06:33] LABS: ALT (SGPT) 19 U/L (8-55); AST (SGOT) 17 U/L (5-34); Albumin 3.8 g/dL (3.4-4.8); Alkaline Phosphatase 62 U/L (40-150); BUN (Urea Nitrogen) 22 mg/dL (9.8-20.1); Bilirubin, Total 0.5 mg/dL (0.2-1.2); Calc. Creatinine Clearance 0 mL/min (70-130); Calcium 8.9 mg/dL (7.8-10.44); Estimated GFR-MDRD 52; Glucose 90 mg/dL (83-110); Protein, Total 6.8 g/dL (6.0-8.3)
[2018-05-16 06:37] LABS: Troponin I Less than 0.010 ng/mL (< 0.028)
[2018-05-16 06:41] LABS: Anion Gap 13 mmol/L (10-20); Carbon Dioxide 35 mmol/L (23-31); Chloride 101 mmol/L (98-107); Potassium 4.5 mmol/L (3.5-5.1); Sodium 144 mmol/L (136-145)
--- NOTE | 2018-05-16 07:51 | CT ---
HEAD CT NONCOTNRAST: COMPARISON: 09/21/2017. INDICATION: Fall. FINDINGS: There is parenchymal volume loss and moderate chronic ischemic disease. No acute intracranial hemorr nima, mass effect, or midline shift. Ventricular system is stable. There is a hematoma involving th e posterior scalp. No depressed calvarium fracture or pneumocephalus. IMPRESSION: No acute intracranial hemorrhage or mass effect. POS: [facility]
--- NOTE | 2018-05-16 07:52 | CT ---
CERVICAL SPINE CT NONCONTRAST: INDICATION: Fall with neck injury and pain. FINDINGS: Reference is made to 09/19/2017 exam. Multilevel degenerative change throughout the cervical spine is redemonstrated. Stable grade I spondylolisthesis of C3-4. No new compression fracture. No cranioc ervical distraction injury. IMPRESSION: Redemonstration of multilevel degenerative changes throughout the cervical spine. No definite acute fracture is seen. POS: [facility]
--- NOTE | 2018-05-22 12:04 | EKG ---
Test Reason : Blood Pressure : / mmHG Vent. Rate : 080 BPM Atrial Rate : 080 BPM P-R Int : 166 ms QRS Dur : 092 ms QT Int : 408 ms P-R-T Axes : 054 -09 037 degrees QTc Int : 470 ms Sinus rhythm with Premature atrial complexes Otherwise normal ECG Confirmed by DORA BISHOP, JOHNATHAN ([id number]), publications editor JACOBO GUNDERSON ([id number]) on 05/22/2018 12:03:35 PM Referred By: Confirmed By:JOHNATHAN JOHN MD
== END 2018-05-16 07:31 | disposition home or self-care (01) ==
LOC: ERS 05:27
DX: S09.90XA Unspecified injury of head, initial encounter (principal); J44.9 Chronic obstructive pulmonary disease, unspecified; I48.91 Unspecified atrial fibrillation; E03.9 Hypothyroidism, unspecified; I73.9 Peripheral vascular disease, unspecified; F41.9 Anxiety disorder, unspecified; I50.9 Heart failure, unspecified; D50.9 Iron deficiency anemia, unspecified; Z79.82 Long term (current) use of aspirin; Z87.891 Personal history of nicotine dependence; Z79.899 Other long term (current) drug therapy; W18.30XA Fall on same level, unspecified, initial encounter
CPT/HCPCS: 36415; 70450; 72125; 80053; 82553; 84484; 85025; 93005

== ENCOUNTER 2018-07-31 06:51 | Emergency (ER) | payer MEDICARE ==
[2018-07-31] MEDS ORDERED: Lidocaine 1% w/Epinephrine 1:100K 20 ML VIAL ONE (06:55)
[2018-07-31 07:27] LABS: #Basophils 0.1 thou/uL (0.0-0.2); #Eosinphils 0.2 thou/uL (0.0-0.7); #Lymphocytes 1.2 thou/uL (1.20-3.40); #Monocytes 0.7 thou/uL (0.11-0.59); #Neutrophils 7.4 thou/uL (1.40-6.50); %Basophils 0.8 % (0.0-1.0); %Eosinophils 2.2 % (0.0-10.0); %Lymphocytes 12.3 % (21.0-51.0); %Neutrophils 77.7 % (42.0-75.0); Hemoglobin 9.7 g/dL (12.0-16.0); Mean Corpuscular HGB CONC 31.1 g/dL (32.0-36.0); Mean Corpuscular Hemoglobin 30.8 pg (27.0-31.0); Mean Corpuscular Volume 98.9 fL (78.0-98.0); Mean Platelet Volume 8.6 fL (7.4-10.4); Platelet Count 136 thou/uL (130-400); RBC Distribution Width 12.5 % (11.5-14.5); Red Blood Cell (RBC) Count 3.17 mill/uL (4.20-5.40); White Blood Cell (WBC) Count 9.5 thou/uL (4.8-10.8)
[2018-07-31 07:37] LABS: INR-International Normal Ratio 1.1; PTT 27.6 SEC (22.9-36.1); Prothrombin Time 13.9 SEC (12.0-14.7)
[2018-07-31 07:46] LABS: ALT (SGPT) 21 U/L (8-55); AST (SGOT) 22 U/L (5-34); Albumin 3.7 g/dL (3.4-4.8); Alkaline Phosphatase 65 U/L (40-150); Anion Gap 15 mmol/L (10-20); BUN (Urea Nitrogen) 24 mg/dL (9.8-20.1); Bilirubin, Total 0.3 mg/dL (0.2-1.2); Calc. Creatinine Clearance 0 mL/min (70-130); Carbon Dioxide 33 mmol/L (23-31); Chloride 100 mmol/L (98-107); Estimated GFR-MDRD 49; Globulin 2.9 g/dL (2.4-3.5); Glucose 108 mg/dL (83-110); Potassium 4.7 mmol/L (3.5-5.1); Protein, Total 6.6 g/dL (6.0-8.3); Sodium 143 mmol/L (136-145)
[2018-07-31] MEDS ORDERED: Adacel (T-DAP) 0.5 ML SYRINGE ONE (08:11)
[2018-07-31] MEDS ORDERED: Acetaminophen 325 MG TAB ONE (09:13)
--- NOTE | 2018-07-31 10:04 | CT ---
CT BRAIN WITHOUT CONTRAST: Date: 07/31/18 HISTORY: Fall. COMPARISON: CT brain dated 05/16/18. FINDINGS: No acute hemorrhage or infarct. Microvascular ischemic changes. Moderate atrophy. Calvarium intact. S ubcutaneous gas and sutures along right posterior parietal calvarium in subcutaneous soft tissues. IMPRESSION: No acute post-traumatic intracranial sequelae. POS: [facility]
--- NOTE | 2018-07-31 10:10 | CT ---
CT CERVICAL SPINE WITHOUT CONTRAST: Date: 07/31/18 HISTORY: Fall. COMPARISON: None. FINDINGS: Lung apices are clear. No paraspinal muscle hematoma. The occipital condyles are intact. Odontoid process is intact. There is severe degenerative facet art hropathy throughout the cervical spine. There is chronic C3 over C4 anterolisthesis, Grade I. No acute displaced fracture or malalignment of the cervical spine. Spinous processes are intact. Rodriguez sverse foramen are intact Dense calcifications of the carotid bulbs. IMPRESSION: Severe degenerative changes. No acute fracture or malalignment. POS: [facility]
--- NOTE | 2018-07-31 10:24 | RAD ---
CHEST 1 VIEW: Date: 07/31/18 HISTORY: Fall. COMPARISON: Radiograph dated 09/19/17. FINDINGS: Exam limited due to rightward patient rotation. There is some chronic blunting of right lateral costo phrenic sulcus. Chronic interstitial markings lung bases. No acute displaced rib fracture is apprecia inez. Chronic appearing upper mid thoracic spine compression fracture. IMPRESSION: Chronic findings. No acute intrathoracic abnormality. POS: [facility]
--- NOTE | 2018-07-31 10:25 | RAD ---
PELVIS AP STANDARD: Date: 07/31/18 HISTORY: Trauma. Fall. COMPARISON: None. FINDINGS: There is minimal narrowing of both hip joints. Asymmetric, right worse than left, degenerative diseas e of SI joints. Obturator rings are intact, as well as the femoral heads. Femoral necks intact. IMPRESSION: No acute displaced fracture. POS: [facility]
--- NOTE | 2018-07-31 10:26 | RAD ---
RIGHT ELBOW 4 VIEWS: Date: 07/31/18 HISTORY: Fall. COMPARISON: None. FINDINGS: Mild narrowing of the radiocapitellar and ulnar trochlear joints. No acute displaced fracture or yunior lignment. No significant joint effusion. IMPRESSION: No acute displaced fracture. POS: [facility]
--- NOTE | 2018-07-31 10:27 | RAD ---
THORACIC SPINE 2 VIEWS: Date: 07/31/18 HISTORY: Fall. Pain. COMPARISON: Radiograph dated 10/19/17. FINDINGS: Upper to mid thoracic spine compression fracture similar. No new acute fracture or malalignment. Ther e are scoliotic changes. IMPRESSION: No new acute compression fracture of the thoracic spine. POS: [facility]
--- NOTE | 2018-07-31 10:29 | RAD ---
LUMBAR SPINE 2 VIEWS: Date: 07/31/18 HISTORY: Fall. COMPARISON: Lumbar spine CT dated 09/19/17. FINDINGS: Chronic superior end plate fracture and anterior compression fracture at L1. Chronic anterolisthesis of L4 over L5. Severe facet arthropathy lower lumbar spine. Severe degenerative disease of the intras pinous space of lumbar spine. No new acute fracture is appreciated. IMPRESSION: Chronic findings. No acute new fracture. POS: [facility]
== END 2018-07-31 10:58 | disposition home or self-care (01) ==
LOC: ERS 06:51
DX: S01.01XA Laceration without foreign body of scalp, initial encounter (principal); S50.01XA Contusion of right elbow, initial encounter; S32.049D Unspecified fracture of fourth lumbar vertebra, subsequent encounter for fracture with routine healing; S32.059D Unspecified fracture of fifth lumbar vertebra, subsequent encounter for fracture with routine healing; S22.009D Unspecified fracture of unspecified thoracic vertebra, subsequent encounter for fracture with routine healing; E05.90 Thyrotoxicosis, unspecified without thyrotoxic crisis or storm; J44.9 Chronic obstructive pulmonary disease, unspecified; I48.91 Unspecified atrial fibrillation; I50.9 Heart failure, unspecified; D50.9 Iron deficiency anemia, unspecified; F41.9 Anxiety disorder, unspecified; Z87.891 Personal history of nicotine dependence; Z79.899 Other long term (current) drug therapy; Z79.82 Long term (current) use of aspirin; W19.XXXA Unspecified fall, initial encounter
CPT/HCPCS: 12001; 36415; 70450; 71045; 72070; 72100; 72125; 72170; 80053; 85025; 85610; 85730; 86850; 86900; 86901; 90471; 90715; 93005; 96360; J2001

== ENCOUNTER 2018-08-04 17:02 | Emergency (ER) | payer MEDICARE ==
[2018-08-04 17:48] LABS: #Basophils 0.1 thou/uL (0.0-0.2); #Eosinphils 0.1 thou/uL (0.0-0.7); #Lymphocytes 0.6 thou/uL (1.20-3.40); #Monocytes 0.4 thou/uL (0.11-0.59); #Neutrophils 5.7 thou/uL (1.40-6.50); %Basophils 0.8 % (0.0-1.0); %Eosinophils 1.6 % (0.0-10.0); %Lymphocytes 8.2 % (21.0-51.0); %Monocytes 6.2 % (0.0-10.0); %Neutrophils 83.2 % (42.0-75.0); Hemoglobin 8.8 g/dL (12.0-16.0); Mean Corpuscular HGB CONC 32.3 g/dL (32.0-36.0); Mean Corpuscular Hemoglobin 31.4 pg (27.0-31.0); Mean Corpuscular Volume 97.3 fL (78.0-98.0); Mean Platelet Volume 8.4 fL (7.4-10.4); Platelet Count 160 thou/uL (130-400); RBC Distribution Width 12.4 % (11.5-14.5); Red Blood Cell (RBC) Count 2.81 mill/uL (4.20-5.40); White Blood Cell (WBC) Count 6.9 thou/uL (4.8-10.8)
[2018-08-04 18:38] LABS: Bilirubin Negative (Negative); Blood, Urine Small (Negative); Clarity CLEAR (Clear); Glucose, Urine (Dipstick) Negative (Negative); Leukocyte Negative (Negative); Nitrite Negative (Negative); Protein, Urine (Dipstick) Trace mg/dL (Neg-Trace); Specific Gravity, Urine 1.015 (1.002-1.036)
[2018-08-04 18:41] LABS: Bacteria/HPF None Seen HPF (None Seen); Hyaline Casts/LPF 0-3 HYALINE CAST LPF (0-3 Hyaline); Pathc Cast-AUWi Flag 0.43 (0-2.49); Squamous Epithelial 0-3 HPF (0-3); WBC/HPF 0-3 HPF (0-3)
[2018-08-04 18:42] LABS: Yeast-AUWi Flag 49.2 (0-25.0)
[2018-08-04 18:48] LABS: RBC/HPF 0-3 HPF (0-3)
[2018-08-04 18:56] LABS: ALT (SGPT) 29 U/L (8-55); AST (SGOT) 55 U/L (5-34); Albumin 4.2 g/dL (3.4-4.8); Alkaline Phosphatase 77 U/L (40-150); Anion Gap 22 mmol/L (10-20); BUN (Urea Nitrogen) 20 mg/dL (9.8-20.1); Bilirubin, Total 0.4 mg/dL (0.2-1.2); CK (CPK) 338 U/L (29-168); Calc. Creatinine Clearance 0 mL/min (70-130); Calcium 10.5 mg/dL (7.8-10.44); Carbon Dioxide 32 mmol/L (23-31); Chloride 92 mmol/L (98-107); Estimated GFR-MDRD 44; Globulin 3.4 g/dL (2.4-3.5); Glucose 96 mg/dL (83-110); Lipase 13 U/L (8-78); Potassium 5.5 mmol/L (3.5-5.1); Protein, Total 7.6 g/dL (6.0-8.3); Sodium 140 mmol/L (136-145)
--- NOTE | 2018-08-04 19:47 | RAD ---
PORTABLE CHEST 08/04/18 PROVIDED CLINICAL HISTORY: Altered mental status. FINDINGS: Comparison is made with a study dated 07/31/18. Examination is rotated, limiting assessment. The cardiac and mediastinal silhouette is not definitely changed in appearance. Right basilar pleural and/or parenchymal opacity may be present. No evidence for pneumothorax. Left lung appears grossly clear. IMPRESSION: Right basilar pleural and/or parenchymal opacity may be present. Followup is recommended. POS: [facility]
--- NOTE | 2018-08-04 19:49 | CT ---
CT BRAIN: Date: 08-04-18 Provided Clinical History: Altered mental status. FINDINGS: Comparison 07-31-18. The ventricular system is unchanged in size and morphology. There is no evidence for intracranial hem orrhage or mass effect. The extracranial soft tissues and osseous structures demonstrate a stable CT appearance. Prominent chronic microvascular white matter ischemic changes are again seen. IMPRESSION: No evidence for intracranial hemorrhage or mass effect. POS: [facility]
== END 2018-08-04 19:33 | disposition home or self-care (01) ==
LOC: ERS 17:02
DX: J44.1 Chronic obstructive pulmonary disease with (acute) exacerbation (principal); R44.1 Visual hallucinations; R10.9 Unspecified abdominal pain; E05.90 Thyrotoxicosis, unspecified without thyrotoxic crisis or storm; I48.91 Unspecified atrial fibrillation; D50.9 Iron deficiency anemia, unspecified; F41.9 Anxiety disorder, unspecified; I50.9 Heart failure, unspecified; Z87.891 Personal history of nicotine dependence; Z79.899 Other long term (current) drug therapy; Z79.82 Long term (current) use of aspirin
CPT/HCPCS: 36416; 51701; 70450; 71045; 80053; 81003; 81015; 82140; 82550; 83690; 83880; 84436; 84443; 84484; 85025; 87086; 93005; 94640; 96360; A4353; J7620

== ENCOUNTER 2018-08-18 19:16 | Inpatient (IN) | payer MEDICARE ==
[2018-08-18 20:38] LABS: #Eosinphils 0.1 thou/uL (0.0-0.7); #Lymphocytes 0.8 thou/uL (1.20-3.40); #Monocytes 0.7 thou/uL (0.11-0.59); #Neutrophils 9.1 thou/uL (1.40-6.50); %Basophils 0.1 % (0.0-1.0); %Eosinophils 1.3 % (0.0-10.0); %Lymphocytes 7.1 % (21.0-51.0); %Monocytes 6.9 % (0.0-10.0); %Neutrophils 84.6 % (42.0-75.0); Hemoglobin 8.7 g/dL (12.0-16.0); Mean Corpuscular HGB CONC 30.4 g/dL (32.0-36.0); Mean Corpuscular Hemoglobin 30.7 pg (27.0-31.0); Mean Platelet Volume 7.8 fL (7.4-10.4); Platelet Count 318 thou/uL (130-400); RBC Distribution Width 13.1 % (11.5-14.5); Red Blood Cell (RBC) Count 2.83 mill/uL (4.20-5.40); White Blood Cell (WBC) Count 10.7 thou/uL (4.8-10.8)
--- NOTE | 2018-08-18 20:51 | RAD ---
PORTABLE UPRIGHT FRONTAL CHEST RADIOGRAPH 08/18/18 COMPARISON: 08/04/18 HISTORY: Dyspnea. FINDINGS: There is new focal consolidation in the right perihilar region/right lung base with probable associat ed small right pleural effusion. The left lung appears clear. There is atherosclerotic calcification in the aortic arch. IMPRESSION: New focal opacity in the right lung base. Findings suggests right lower lobe infectious pneumonitis/a spiration. Recommend followup imaging following treatment to document resolution. POS: [facility]
[2018-08-18 20:56] LABS: Bilirubin Negative (Negative); Blood, Urine Negative (Negative); Clarity CLEAR (Clear); Glucose, Urine (Dipstick) Negative (Negative); Leukocyte Negative (Negative); Nitrite Negative (Negative); Protein, Urine (Dipstick) Negative (Neg-Trace); Specific Gravity, Urine 1.017 (1.002-1.036); Urobilinogen 0.2 mg/dL (0.2-1.0)
[2018-08-18 20:58] LABS: ALT (SGPT) 28 U/L (8-55); AST (SGOT) 27 U/L (5-34); Albumin 3.2 g/dL (3.4-4.8); Alkaline Phosphatase 116 U/L (40-150); Anion Gap 11 mmol/L (10-20); BUN (Urea Nitrogen) 21 mg/dL (9.8-20.1); Bilirubin, Total 0.2 mg/dL (0.2-1.2); CK (CPK) 33 U/L (29-168); Calc. Creatinine Clearance 0 mL/min (70-130); Carbon Dioxide 36 mmol/L (23-31); Chloride 96 mmol/L (98-107); Estimated GFR-MDRD 52; Globulin 4.2 g/dL (2.4-3.5); Glucose 119 mg/dL (83-110); Potassium 5.2 mmol/L (3.5-5.1); Protein, Total 7.4 g/dL (6.0-8.3); Sodium 138 mmol/L (136-145)
--- NOTE | 2018-08-18 22:18 | CT ---
HEAD CT WITHOUT CONTRAST 08/18/18 COMPARISON: 08/04/18. HISTORY: Fall, injury, weakness. TECHNIQUE: Axial CT imaging at 5 mm intervals from vertex through skull base without contrast. FINDINGS: The imaged paranasal sinuses/mastoid air cells are grossly unremarkable. There is no displaced calvar ial fracture. There is no intracranial hemorrhage, midline shift, mass effect or ventricular enlargem ent. There is extensive periventricular, deep and subcortical white matter hypodensity, left greater than right, evidence of small vessel disease. IMPRESSION: Evidence of small vessel disease. No intracranial hemorrhage. POS: [facility]
[2018-08-18] MEDS ORDERED: Piperacillin/Tazobactam 3.375 GM VIAL ONE (23:14)
[2018-08-19] MEDS ORDERED: Acetaminophen 500 MG TAB ONE (00:08)
[2018-08-19] MEDS ORDERED: Acetaminophen 650 MG Suppository ONE (01:22)
[2018-08-19] MEDS ORDERED: Senokot S 8.6-50 MG TAB PO PRN (08:44)
[2018-08-19] MEDS ORDERED: Acetaminophen 325 MG TAB PO PRN (08:44)
[2018-08-19 10:13] LABS: #Basophils 0.1 thou/uL (0.0-0.2); #Eosinphils 0.1 thou/uL (0.0-0.7); #Lymphocytes 0.8 thou/uL (1.20-3.40); #Monocytes 0.9 thou/uL (0.11-0.59); #Neutrophils 7.7 thou/uL (1.40-6.50); %Basophils 0.8 % (0.0-1.0); %Eosinophils 1.4 % (0.0-10.0); %Lymphocytes 8.6 % (21.0-51.0); %Neutrophils 80.2 % (42.0-75.0); Hemoglobin 8.9 g/dL (12.0-16.0); Mean Corpuscular HGB CONC 30.7 g/dL (32.0-36.0); Mean Corpuscular Hemoglobin 31.1 pg (27.0-31.0); Mean Platelet Volume 7.6 fL (7.4-10.4); Platelet Count 303 thou/uL (130-400); RBC Distribution Width 13.1 % (11.5-14.5); Red Blood Cell (RBC) Count 2.86 mill/uL (4.20-5.40); White Blood Cell (WBC) Count 9.6 thou/uL (4.8-10.8)
[2018-08-19 11:14] LABS: Actual Bicarbonate (HCO3a) 36.9 mEq/L (22-28); Analyzer IN Cardio ER; Base Excess (BEa) 7.4 mEq/L (-2.0 to +3.0); Calcium, Ionized 1.17 mmol/L (1.12-1.30); Carboxyhemoglobin (COHb) 0.6 gm% (0.0-3.0); Hemoglobin (Hb) 8.3 g/dL (12.0-16.0); O2 Tension (PaO2) 164.8 mmHg (> 60.0); Potassium - ABG Lab 4.59 mmol/L (3.70-5.30)
[2018-08-19] MEDS: Amiodarone 200 MG TAB PO SCH (11:14)
[2018-08-19] MEDS: Aspirin 81 mg Enteric Coated Tablet PO SCH ×2 (11:14→21:11)
[2018-08-19] MEDS: Polyethylene Glycol 3350 17 GM Packet PO SCH (11:15)
[2018-08-19] MEDS: Levothyroxine Sodium 100 MCG TAB PO SCH (11:15)
[2018-08-19 11:18] LABS: CO2 Tension 93.4 mmHg (35.0-45.0); Puncture Site RRA; pH, Arterial 7.21 (7.35-7.45)
[2018-08-19] MEDS ORDERED: Diltiazem 125 MG/25 ML ONE (12:47)
[2018-08-19] MEDS: Piperacillin/Tazobactam 3.375 GM in Sodium Chloride 0.9% 100 ML IVPB SCH ×2 (13:27→23:53)
[2018-08-19] MEDS ORDERED: Digoxin 0.5 MG/2 ML AMP SLOW IVP SCH (14:30)
[2018-08-19 17:42] VITALS: BMI 23.9
[2018-08-19] MEDS: Ipratropium Bromide 2.5 ml Neb NEB SCH ×2 (18:47→22:04)
--- NOTE | 2018-08-19 19:00 | CON ---
DATE OF CONSULTATION: REASON FOR CONSULTATION: Atrial fibrillation. HISTORY OF PRESENT ILLNESS: Ms. Dominguez is a pleasant 88-year-old woman who I recently in the office. Her main complaint was shortness of breath. She presented to the emergency room with continued shortness of breath, tachycardia, and fever. She was diagnosed with pneumonia and is subsequently being admitted. Heart rate has been in the 120s to 130s. She was seen and evaluated in the MICU. She was not very alert. She is currently on BiPAP. CURRENT MEDICATIONS: Include; 1. Amiodarone. 2. Multivitamin. 3. Albuterol. 4. Potassium chloride. 5. Icaps. 6. . 7. Vitamin C. 8. Iron. 9. Caltrate. 10. Melatonin. 11. Alendronate. PAST MEDICAL HISTORY: Atrial fibrillation, COPD, hypothyroidism, asthma, GI bleed, anemia, PVD, CAD, and osteoarthritis. PAST SURGICAL HISTORY: Previous cardioversion in 10/2012. SOCIAL HISTORY: No current tobacco or alcohol use. She has a very supportive family. ALLERGIES: CODEINE, MOTRIN, AND KEFLEX. REVIEW OF SYSTEMS: Unobtainable. PHYSICAL EXAMINATION: GENERAL: The patient is a pleasant female, who is in no acute distress. The patient appears their stated age. VITAL SIGNS: Blood pressure 110/70, pulse rate 114 to 130, and respirations 20. NEUROLOGIC: The patient is alert and oriented x3 with no focal neurologic deficits. HEENT: Sclerae without icterus. Mouth has moist mucous membranes with normal pallor. NECK: No JVD. Carotid upstroke brisk. No bruits bilaterally. LUNGS: Clear to auscultation with unlabored respirations. BACK: No scoliosis or kyphosis. CARDIAC: Irregularly irregular. ABDOMEN: Soft, nontender, nondistended. No peritoneal signs present. No hepatosplenomegaly. No abnormal striae. EXTREMITIES: 2+ femoral and 2+ dorsalis pedis pulses. No cyanosis, clubbing, or edema. SKIN: No gross abnormalities. PERTINENT LABORATORY DATA: Hemoglobin 8.9. BNP of 474. Troponin negative. IMPRESSION: 1. Atrial fibrillation with rapid ventricular response. 2. Pneumonia. 3. Chronic obstructive pulmonary disease. RECOMMENDATIONS: The patient has been seen and evaluated by Dr. Anshu Roy. From a CV standpoint, we would recommend low-dose IV Cardizem for rate control, may consider bolus. She is on antibiotic therapy. Given her comorbidities and advanced age, her prognosis appears guarded. Family is aware. She has been made DNR. In the past, she has had difficulty with decompensation while in atrial fibrillation and hence has been on amiodarone therapy with appropriate control. She has not been taking anticoagulation therapy due to GI bleed. Job ID: [id number]
[2018-08-19] MEDS: Diltiazem 125 MG in Sodium Chloride 0.9% 100 ML IVPB SCH (19:22)
[2018-08-19] MEDS: Melatonin 3 MG TAB PO SCH (21:11)
--- NOTE | 2018-08-19 22:26 | HP ---
CHIEF COMPLAINT: Generalized weakness and shortness of breath. HISTORY OF PRESENT ILLNESS: The patient is a pleasant 88-year-old female who lives alone and has a past medical history of COPD, atrial fibrillation, and heart failure, who presents to the hospital with complaints of generalized weakness and shortness of breath. The patient's family and daughters at the bedside stated that the patient has not been feeling well for the past couple days. However, prior to coming to the hospital, she became so weak to the point that she was unable to hold a cup. She also has been having worsening shortness of breath. The patient's daughter has noticed that the patient has been coughing, especially with food and she has been producing lots and lots of sputum. The patient's family denies of patient having any fevers or chills. PAST MEDICAL HISTORY: 1. COPD. 2. Atrial fibrillation. 3. Macular degeneration. 4. She is on home oxygen and she has heart failure that appears to be diastolic, EF of 60% to 65%. However, also has moderate aortic stenosis. PAST SURGICAL HISTORY: The patient denies any surgical history. SOCIAL HISTORY: She was a former smoker. Denies any alcohol use or current smoker or any drug use. She is currently a DNR. Initially, the daughter was very confused and stated she was a full code. However, after talking to the patient's family, she decided to make the patient DNR. REVIEW OF SYSTEMS: Currently unable to obtain. FAMILY HISTORY: No history of heart disease or cancer. PHYSICAL EXAMINATION: VITAL SIGNS: Temperature, she is afebrile at 98.8, respirations were 22, blood pressure was 110/60, heart rate was in the 130s. GENERAL: She is awake, alert, and oriented x2. She appears to be very tachypneic. CV: S1 and S2 present. Irregularly irregular. Tachycardic. LUNGS: She has diminished breath sounds all over. No rhonchi or wheezes noted. ABDOMEN: Soft and nontender. Bowel sounds are present x2. EXTREMITIES: She has no edema. Pedal pulses are present x2. NEUROVASCULAR: No focal deficits noted. SKIN: She has some old healed bruise to her lower extremities. HEENT: The pupils are equal and reactive to light. Mucous membranes appear to be mildly dehydrated. LABORATORY DATA: As of the following; her WBCs of 9.6, hemoglobin of 8.9, hematocrit of 29.0, platelets of 303. Chemistry; sodium of 138, potassium of 5.2, BUN of 21, creatinine of 1. Her BNP is 474. Troponin x3 were negative. EKG, she appears to be in atrial fibrillation. Her chest x-ray that was done indicated that she has a right lower lobe pneumonia. CT head was negative. ASSESSMENT AND PLAN: The patient is an 88-year-old female who comes into the hospital with weakness and shortness of breath. 1. Acute hypercapnic respiratory failure. Initially, the patient had a change in mental status, thought to be a stroke. However, upon my evaluation, the patient did not appear to have a stroke. An ABG was ordered. At this time, the patient appeared to have a CO2 of 92. She was put on BiPAP and I have put her on antibiotics to cover for aspiration pneumonia, and since she was in the hospital a few weeks ago, I also covered her for hospital-acquired pneumonia just to be on the safer side. Check a respiratory viral panel on this patient. She is going to be going into the IMCU, blood cultures have been done on this patient. We will continue to monitor her. 2. Pneumonia, most likely possible aspiration. We will get Speech to evaluate this patient. The patient was noted to have difficulty swallowing by the nurse. We will get an official speech consult for this patient. 3. Atrial fibrillation with rapid ventricular response. The patient's heart rate currently is uncontrolled. Due to her labile blood pressure, I have given her five of Cardizem, however with no response, is given her digoxin. We will re-evaluate her. If not, she might require a Cardizem drip. However, her blood pressure again is very labile. 4. Deep venous thrombosis prophylaxis. We will put the patient on sequential compression devices or subcu heparin. 5. Anemia, appears to be chronic. We will continue to monitor. Job ID: [id number]
--- NOTE | 2018-08-19 22:57 | CON ---
DATE OF CONSULTATION: 08/19/2018 PULMONOLOGY CONSULT REASON FOR CONSULTATION: Acute hypoxic hypercapnic respiratory failure. HISTORY OF PRESENT ILLNESS/HOSPITAL COURSE: This is an 88-year-old female who was brought in by her daughter due to changes in mentation, which have been steadily worsening over the course of the last week. Additionally, the patient' s daughter noted that during dinner yesterday, the patient was not able to feed herself, which was concerning. She states that she was not able to lift her hand to her mouth. Also the patient was reportedly confused and exhibiting personality changes per the daughter. Thus the daughter got concerned and decided to bring her into the emergency department for evaluation. The patient was worked up for a stroke due to the acute onset of weakness and reported focal deficit. A CT of the brain did show evidence of small-vessel disease and no intracranial hemorrhage. Sometime around 11 o'clock this morning, the patient was noted to be in respiratory distress and atrial fibrillation with RVR. A blood gas was obtained and pH was noted to be 7.21 with pCO2 of 93.4, and a PO2 of 164. The patient was placed on BiPAP and has been tolerating BiPAP since that time. The patient does have a known history of atrial fibrillation. She was seen by Cardiology just a few days ago and started on Cardizem. The patient is noted to have a heart rate in the 140s currently. Other past medical history includes diastolic congestive heart failure, aortic stenosis, atrial fibrillation, osteoporosis, and COPD confirmed by PFTs approximately 6 years ago. Per the daughter's report, just prior to the code green being called in the emergency department, the patient was having some difficulty breathing and appeared to be in distress. Although not completely oriented, the patient still is able to tell me that she is not in any pain and she is breathing better on the BiPAP. At baseline, the patient is on 3 L nasal cannula. She was discharged from the hospital in 2012 with home O2. She has never followed with a dishwashing machine repairer. However, she does have a primary care physician, for which she sees fairly regularly. The patient has never been titrated off the oxygen. Per the daughter's report, she desats into the 60s when ambulating on room air. She also will desat into the upper 70s while at rest. She has required the oxygen chronically since 2012. The patient does use a nebulizer two times a day and is on Symbicort for COPD, which the daughter states was confirmed by PFTs years ago. PAST MEDICAL HISTORY: 1. COPD. 2. Atrial fibrillation. 3. Diastolic congestive heart failure. 4. Osteoporosis. 5. Aortic valve stenosis. PAST SURGICAL HISTORY: None. SOCIAL HISTORY: The patient has a history of smoking one pack per day for 50 years. Per the daughter, she quit in 2009. There is no history of illicit drug use or alcohol abuse. ALLERGIES: 1. IBUPROFEN. 2. CODEINE. MEDICATIONS: 1. Symbicort. 2. Amiodarone. 3. Alendronate sodium. 4. Cardizem. 5. Aspirin. 6. DuoNeb b.i.d. 7. Furosemide. PHYSICAL EXAMINATION: GENERAL: The patient is currently on BiPAP. She does not appear to be in any acute distress at this point in time. She is only alert to person but not to place or time. HEENT: Moist mucous membranes. No conjunctival erythema. CARDIO: Tachycardic with an irregularly irregular rhythm, 4/6 systolic murmur. RESPIRATORY: Decreased breath sounds throughout. No acute respiratory distress , although the patient was appeared tachypneic even on BiPAP. No use of accessory muscles observed. MS: The patient noted to be a kyphotic. EXTREMITIES: 2+ pitting edema of bilateral lower extremities. NEURO: Difficult to assess due to the patient's current mental status. VITAL SIGNS: Pulse 135, blood pressure 127/83, O2 saturation 100% on BiPAP, respiratory rate 28. ASSESSMENT: 1. Acute hypoxic hypercapnic respiratory failure secondary to pneumonia. 2. Sepsis secondary to pneumonia. 3. Atrial fibrillation with rapid ventricular response. 4. Chronic obstructive pulmonary disease. 5. Diastolic congestive heart failure. 6. Aortic valve stenosis. 7. Osteoporosis. PLAN: An extensive discussion was held with family regarding the patient's code status. As the patient is not able to make these decisions for herself at this point in time and there is no advance directive in place, the patient's daughter has been appointed as the decision maker in regards to the patient's plan of care. The daughter states that based on conversation with her mother previously that she would not want resuscitation efforts. Thus the patient was made DNR. We will continue broad-spectrum antibiotics and fluids at this time for treatment of pneumonia. We will await blood culture results. Influenza swabs was negative. Chest x-ray did show focal opacity in the right lung base consistent with pneumonia. We will add Cardizem drip to control heart rate with a goal heart rate of less than 110. Efforts will be made to keep the patient comfortable; however, if the patient does develop respiratory distress despite being on BiPAP, efforts will not be taken to intubate or resuscitate the patient per the wishes of the patient and the patient's family. Continue DuoNeb treatments at this time. Prognosis is guarded given the patient's clinical presentation and age. This was discussed with the family. Critical care consult time was 30 minutes. We will continue to follow this patient during the course of her hospital stay. Thank you so much for the consultation. Job ID: [id number] [email or web address]
[2018-08-20] MEDS: Piperacillin/Tazobactam 3.375 GM in Sodium Chloride 0.9% 100 ML IVPB SCH ×4 (01:34→17:39)
[2018-08-20] MEDS: Dextrose 5 % And 0.9 % NaCl 1,000 ML IV SCH ×2 (01:34→12:49)
--- NOTE | 2018-08-20 01:41 | CON ---
DATE OF CONSULTATION: This is a 70-minute consult, 50% of the time spent on the unit coordinating care. HISTORY OF PRESENT ILLNESS: Mrs. Dominguez is a very pleasant 88-year-old female, seen in the emergency room with history, the most part was taken from the daughter. She has a history of chronic atrial fibrillation. She has had cough with chest congestion for about a week. She was seen earlier in the week by Dr. Mayes who informed me when I called him that she looked horrible. He recommended admission. They did not want to come to the hospital for admission. She presented today with more shortness of breath. She was placed on noninvasive ventilation and on chest radiograph, was found to have a fairly dense right lower lobe and probable right middle lobe alveolar infiltrate consistent with pneumonia. Her daughter tells me that she has been coughing when she drinks water lately. I would suspect this is an aspiration pneumonia. PAST MEDICAL HISTORY: 1. Remarkable for atrial fibrillation, on amiodarone. 2. Reportedly COPD, although I cannot find any old PFTs. 3. Hypothyroidism, on replacement. 4. Asthma. 5. History of GI bleed. 6. Severe osteoporosis with severe kyphosis. 7. History of peripheral vascular disease. 8. History of coronary artery disease. 9. History of degenerative arthritis. 10. History of cardioversion in 2013 for atrial fibrillation. SOCIAL HISTORY: She is a nonsmoker and nondrinker. She has a very supportive family. ALLERGIES: SHE REPORTS ALLERGIES TO CODEINE, KEFLEX, AND MOTRIN. REVIEW OF SYSTEMS: A 10-point review of systems is not obtainable from her. Family really has not noticed anything with cough, chest congestion, and shortness of breath. PHYSICAL EXAMINATION: GENERAL: She had full face mask BiPAP on. VITAL SIGNS: Blood pressure was over 100 systolic. Heart rate was in the 130s. She was in atrial fibrillation. Respiratory rate was 28 when I saw her in the emergency room. She is very cachectic, kyphotic, frail-appearing woman. She appeared reasonably comfortable. HEENT: Pupils are equal. Sclerae anicteric. NECK: Supple. LUNGS: Remarkable for rhonchi in her right base and her left lung is clear. HEART: Irregular rhythm. ABDOMEN: Soft and nontender. EXTREMITIES: Without clubbing, cyanosis or edema. LABORATORY DATA: White count 9.6, hemoglobin 8.9, platelets 303,000. Sodium 138 , potassium 5.2, chloride 96, bicarb 36, creatinine 1. Blood gas 7.21, pCO2 of 93, pO2 of 164. IMPRESSION: 1. Acute on chronic respiratory failure. 2. Chronic hypoventilation, most likely from her severe kyphosis giving her restrictive defect for all practical purposes. 3. Aspiration pneumonia. 4. Cachexia and advanced age. 5. Atrial fibrillation with poorly controlled rate. Dr. Mayes is being consulted. Started her on a Cardizem drip. We will be happy to follow the other physicians caring for. I met with the daughter, and she informed me that she did not want anymore aggressive care than we are already giving, so she will not have intubation, chest compressions, or cardioversion. She will nakita full do not attempt resuscitation patient. There is no doubt in my mind that if we did have to intubate her, she would not wean from mechanical ventilation without a tracheostomy and even then, may not wean from mechanical ventilation. Her prognosis is quite guarded. I would be happy to follow the other physicians caring for. Critical care time, 30 minutes. Job ID: [id number] RY
[2018-08-20] MEDS ORDERED: Vancomycin HCl 1 GM in Premix Bag 1 BAG IVPB SCH (02:00)
[2018-08-20] MEDS: Ipratropium Bromide 2.5 ml Neb NEB SCH ×6 (02:21→23:44)
[2018-08-20 04:48] LABS: #Basophils 0.1 thou/uL (0.0-0.2); #Eosinphils 0.1 thou/uL (0.0-0.7); #Lymphocytes 0.8 thou/uL (1.20-3.40); #Monocytes 0.7 thou/uL (0.11-0.59); #Neutrophils 10.5 thou/uL (1.40-6.50); %Basophils 0.6 % (0.0-1.0); %Eosinophils 1.1 % (0.0-10.0); %Lymphocytes 6.2 % (21.0-51.0); %Monocytes 5.6 % (0.0-10.0); %Neutrophils 86.5 % (42.0-75.0); Hemoglobin 7.2 g/dL (12.0-16.0); Mean Corpuscular HGB CONC 31.3 g/dL (32.0-36.0); Mean Corpuscular Hemoglobin 31.3 pg (27.0-31.0); Mean Corpuscular Volume 99.8 fL (78.0-98.0); Mean Platelet Volume 7.5 fL (7.4-10.4); Platelet Count 273 thou/uL (130-400); RBC Distribution Width 13.2 % (11.5-14.5); White Blood Cell (WBC) Count 12.1 thou/uL (4.8-10.8)
[2018-08-20 05:16] LABS: Anion Gap 15 mmol/L (10-20); BUN (Urea Nitrogen) 26 mg/dL (9.8-20.1); Calc. Creatinine Clearance 34 mL/min (70-130); Calcium 8.6 mg/dL (7.8-10.44); Carbon Dioxide 30 mmol/L (23-31); Chloride 99 mmol/L (98-107); Estimated GFR-MDRD 50; Glucose 147 mg/dL (83-110); Potassium 4.7 mmol/L (3.5-5.1); Sodium 139 mmol/L (136-145)
[2018-08-20] MEDS: Levothyroxine Sodium 100 MCG TAB PO SCH (10:20)
[2018-08-20] MEDS: Amiodarone 200 MG TAB PO SCH (10:20)
[2018-08-20] MEDS: Aspirin 81 mg Enteric Coated Tablet PO SCH ×2 (10:20→20:57)
[2018-08-20] MEDS: Polyethylene Glycol 3350 17 GM Packet PO SCH (10:20)
--- NOTE | 2018-08-20 11:51 | PRG ---
DATE OF SERVICE: 08/20/2018 SUBJECTIVE: Ms. Dominguez has dramatically improved, BiPAP's off, she kept pulling her mask off. I explained to the daughter that we did not plan to replace BiPAP and we will continue forward with aggressive care sort of reinitiating BiPAP or intubation. She is okay with this plan. OBJECTIVE: VITAL SIGNS: Her temperature is 98, heart rate is 113, respiratory rate is 25, oximetry is 100% on nasal cannula. LUNGS: Remarkable for rhonchi on the right. HEART: Regular rhythm. ABDOMEN: Soft and nontender. LABORATORY DATA: White count 12.1, hemoglobin 7.2, platelets 273. Electrolytes are unremarkable. BUN is 26, creatinine is 1. There is no intake and output recorded as she has a diaper. IMPRESSION: Respiratory failure associated with severe kyphosis, osteoporosis, extreme deconditioning, advanced age, and then an aspiration pneumonia on top of that. Her prognosis is guarded. Prognosis is quite poor for any type of functional recovery. She remains a do not resuscitate patient. Blood cultures are negative from yesterday. I would discontinue the vancomycin. Job ID: [id number]
[2018-08-20] MEDS: Diltiazem 125 MG in Sodium Chloride 0.9% 100 ML IVPB SCH (12:49)
--- NOTE | 2018-08-20 13:36 | PRG ---
DATE OF SERVICE: SUBJECTIVE: Ms. Dominguez seems to be breathing better today. She continues to require BiPAP. There was some concern about her swallowing dysfunction. She did have a cough noted with swallowing. OBJECTIVE: VITAL SIGNS: Blood pressure 116/63, pulse 113, temperature 98. LUNGS: Rales and rhonchi bilaterally. HEART: Irregularly irregular. ABDOMEN: Soft, nontender, and nondistended. EXTREMITIES: 1+ pitting edema. PERTINENT LABORATORY DATA: Hemoglobin 7.2, down from 8.9. Creatinine 1.0. IMPRESSION: 1. Pneumonia. 2. Atrial fibrillation with RVR. RECOMMENDATIONS: Certainly difficult situation for Ms. Dominguez. In the past (2014), she had multiple hospitalizations while in atrial fibrillation. She was placed on amiodarone therapy and was successfully cardioverted. She stayed out of the hospital for several years. She is now back in atrial fibrillation, which is felt to be a new finding. She has had previous bleeding and now her hemoglobin is 7.2 and is not felt to be an appropriate candidate for anticoagulation. At this point, we will continue with IV Cardizem. We discussed p.o. Cardizem, but will have to pass a swallowing study prior to adding p.o. medications. Continue IV antibiotics and Pulmonary followup. Job ID: [id number]
--- NOTE | 2018-08-20 14:52 | PDOC.PN ---
- Subjective Encounter Start Date: 08/20/18 Encounter Start Time: 10:30 Subjective: pt up in bed off bipap - Objective Resuscitation Status - Order Detail: 08/19/18 16:06 Resuscitation Status Routine Resuscitation Status: DNAR: NO Resuscitation Discussed with: daughter Vital Signs & Weight: Vital Signs (12 hours) Temp Pulse Resp BP Pulse Ox 08/20/18 14:47 110 H 28 H 97 08/20/18 11:13 102 H 38 H 99 08/20/18 11:10 98.0 F 113 H 25 H 116/63 100 08/20/18 08:00 92 L 08/20/18 07:49 112 H 08/20/18 07:46 112 H 43 H 92 L 08/20/18 07:24 98.8 F 108 H 24 H 120/64 91 L 08/20/18 04:00 97.2 F L 112 H 18 116/62 92 L Weight Weight 130 lb 1.164 oz Result Diagrams: 08/20/18 04:38 08/20/18 04:38 Phys Exam - Physical Examination Neck: no nodes, no JVD, supple, full ROM Respiratory: wheezing present mild exp Cardiovascular: RRR, no significant murmur, no rub, gallop, irregular Gastrointestinal: soft, non-tender, no distention, positive bowel sounds Dx/Plan (1) Acute hypercapnic respiratory failure Code(s): J96.02 - ACUTE RESPIRATORY FAILURE WITH HYPERCAPNIA Status: Acute (2) Atrial fibrillation with RVR Code(s): I48.91 - UNSPECIFIED ATRIAL FIBRILLATION Status: Acute (3) Aspiration pneumonia Code(s): J69.0 - PNEUMONITIS DUE TO INHALATION OF FOOD AND VOMIT Status: Acute - Plan will continue iv abx for now -: pt's rate stable on cardizem -: will continue gentle fluids * . Review of Systems - Review of Systems Respiratory: negative: Cough, Dry, Shortness of Breath, Hemoptysis, SOB with Excertion, Pleuritic Pain, Sputum, Wheezing Cardiovascular: negative: chest pain, palpitations, orthopnea, paroxysmal nocturnal dyspnea, edema, light headedness, other Gastrointestinal: negative: Nausea, Vomiting, Abdominal Pain, Diarrhea, Constipation, Melena, Hematochezia, Other - Medications/Allergies Allergies/Adverse Reactions: Allergies Allergy/AdvReac Type Severity Reaction Status Date / Time ibuprofen Allergy Mild "DIZZY" Verified 01/05/13 21:54 codeine [Codeine] Allergy "DIZZY" Verified 01/05/13 21:54 Medications: Current Medications Acetaminophen (Tylenol) 650 mg PO Q4H PRN PRN Reason: Headache/Fever/Mild Pain (1-3) Amiodarone HCl (Cordarone) 200 mg PO DAILY [facility] Last Admin: 08/20/18 10:20 Dose: 200 mg Aspirin (Ecotrin) 81 mg PO BID [facility] Last Admin: 08/20/18 10:20 Dose: 81 mg Piperacillin Sod/Tazobactam (Sod 3.375 gm/ Sodium Chloride) 100 mls @ 200 mls/ hr IVPB Q6HR [facility] Last Admin: 08/20/18 12:47 Dose: 100 mls Dextrose/Sodium Chloride (D5 0.9% Ns) 1,000 mls @ 50 mls/hr IV .Q20H [facility] Last Admin: 08/20/18 12:49 Dose: 1,000 mls Diltiazem HCl 125 mg/ Sodium (Chloride) 125 mls @ 5 mls/hr IVPB INF [facility]; Protocol Last Admin: 08/20/18 12:49 Dose: 125 mls Influenza Virus Vacc Triv Types A&B (Fluzone High-Dose Syr) 0.5 ml IM .ONCE ONE Stop: 08/20/18 21:01 Ipratropium [place] (Atrovent) 2.5 ml NEB [id number] [facility] Last Admin: 08/20/18 14:47 Dose: 2.5 ml Levothyroxine Sodium (Synthroid) 100 mcg PO DAILY [facility] Last Admin: 08/20/18 10:20 Dose: 100 mcg Melatonin (Melatonin) 3 mg PO HS [facility] Last Admin: 08/19/18 21:11 Dose: 3 mg Pneumococcal 13-Valent Conj Vacc (Prevnar) 0.5 ml IM .ONCE ONE Stop: 08/20/18 21:01 Polyethylene Glycol (Miralax) 17 gm PO DAILY [facility] Last Admin: 08/20/18 10:20 Dose: Not Given Senna/Docusate Sodium (Senokot S) 2 tab PO BID PRN PRN Reason: Constipation
[2018-08-20] MEDS: Melatonin 3 MG TAB PO SCH (20:57)
[2018-08-20] MEDS ORDERED: Prevnar 13-Val Conj/PF 0.5 ML SYRINGE IM ONE (21:00)
[2018-08-21] MEDS: Dextrose 5 % And 0.9 % NaCl 1,000 ML IV SCH (00:20)
[2018-08-21] MEDS: Piperacillin/Tazobactam 3.375 GM in Sodium Chloride 0.9% 100 ML IVPB SCH ×4 (00:20→18:15)
[2018-08-21] MEDS: Ipratropium Bromide 2.5 ml Neb NEB SCH ×6 (02:10→23:35)
[2018-08-21] MEDS: Diltiazem 125 MG in Sodium Chloride 0.9% 100 ML IVPB SCH ×2 (04:40→23:30)
[2018-08-21] MEDS: Levothyroxine Sodium 100 MCG TAB PO SCH (09:24)
[2018-08-21] MEDS: Aspirin 81 mg Enteric Coated Tablet PO SCH ×2 (09:24→21:34)
[2018-08-21] MEDS: Amiodarone 200 MG TAB PO SCH (09:24)
[2018-08-21] MEDS: Polyethylene Glycol 3350 17 GM Packet PO SCH ×2 (09:25→09:35)
[2018-08-21 12:14] LABS: #Basophils 0.1 thou/uL (0.0-0.2); #Eosinphils 0.1 thou/uL (0.0-0.7); #Lymphocytes 0.6 thou/uL (1.20-3.40); #Monocytes 0.8 thou/uL (0.11-0.59); #Neutrophils 12.6 thou/uL (1.40-6.50); %Basophils 0.4 % (0.0-1.0); %Eosinophils 0.8 % (0.0-10.0); %Lymphocytes 4.1 % (21.0-51.0); %Monocytes 5.6 % (0.0-10.0); %Neutrophils 89.2 % (42.0-75.0); Hemoglobin 7.3 g/dL (12.0-16.0); Mean Corpuscular Hemoglobin 30.9 pg (27.0-31.0); Mean Platelet Volume 7.5 fL (7.4-10.4); Platelet Count 257 thou/uL (130-400); RBC Distribution Width 13.4 % (11.5-14.5); Red Blood Cell (RBC) Count 2.36 mill/uL (4.20-5.40); White Blood Cell (WBC) Count 14.2 thou/uL (4.8-10.8)
[2018-08-21 12:23] LABS: Hypochromia SLIGHT = 6-15 cells (100X) (0-5/hpf); MDiff Complete? YES; Macrocytosis SLIGHT = 6-15 cells (100X) (0-5/hpf); Platelet Morphology Comment Appears Adequate; Polychromasia SLIGHT = 2-3 cells (100X) (0-2/hpf)
--- NOTE | 2018-08-21 12:38 | PRG ---
DATE OF SERVICE: 08/21/2018 SUBJECTIVE: The patient is doing poorly. She is requiring BiPAP most of the time. OBJECTIVE: VITAL SIGNS: On exam, temperature is 98.5, pulse 95, respirations 30, O2 sat 96% on BiPAP, and blood pressure 94/62. GENERAL: She appears elderly, very weak. HEENT: Unremarkable. NECK: No JVD. LUNGS: Poor air movement. CARDIAC: S1 and S2, regular. ABDOMEN: Soft. EXTREMITIES: Bruised. LABORATORY DATA: White blood cell count 14.2, hematocrit 24.2, and platelet count 257. Sodium 139, potassium 4.7, chloride 99, CO2 of 30, BUN 26, creatinine 1.0, and glucose 147. ASSESSMENT: This patient has respiratory failure that is multifactorial. It seems to be in part due to kyphoscoliosis and aspiration pneumonia. In reviewing her notes, it does not look like she has made any improvement since the time of admission and may in fact be on a terminal course. Her x-ray demonstrates fairly marked bilateral infiltrative changes and probably bilateral small effusions. RECOMMENDATIONS: Continue supportive care with noninvasive ventilation as needed. She is continuing antibiotics. She is continuing rate control for AFib. I am very pessimistic that she is going to improve. Job ID: [id number]
--- NOTE | 2018-08-21 14:36 | PDOC.CTH ---
Cardiology Progress Note - Subjective Continues to require BiPAP. Currently rate controlled. - Objective Vital Signs Temp Pulse Pulse Pulse Pulse Resp BP 08/21/18 14:20 28 H 08/21/18 14:18 101 H 33 H 08/21/18 14:10 98.2 F 103 H 36 H 08/21/18 13:55 98.2 F 107 H 39 H 08/21/18 11:25 98.5 F 95 30 H 08/21/18 11:05 96 101 H 94/62 08/21/18 10:29 35 H 08/21/18 10:15 103 H 35 H 08/21/18 08:00 40 H 08/21/18 07:48 98.8 F 122 H 38 H 08/21/18 06:28 08/21/18 06:25 108 H 24 H 08/21/18 04:22 99.4 F 95 26 H BP BP Pulse Ox Pulse Ox Pulse Ox 08/21/18 14:20 93 L 08/21/18 14:18 95 08/21/18 14:10 92/57 L 95 08/21/18 13:55 99/35 L 95 08/21/18 11:25 94/62 96 08/21/18 11:05 99/61 99 94 L 08/21/18 10:29 95 08/21/18 10:15 94 L 08/21/18 08:00 90 L 08/21/18 07:48 119/67 90 L 08/21/18 06:28 90 L 08/21/18 06:25 100 08/21/18 04:22 105/72 96 Weight 128 lb 15.527 oz 08/20/18 08/21/18 08/22/18 06:59 06:59 06:59 Intake Total 690 Balance 690 - Physical Examination General/Neuro: NAD Neck: no JVD present Lungs: unlabored respirations Heart: other: (Irreg, irreg) Abdomen: NT/ND Extremities: other: (no edema) - Telemetry Telemetry Rhythm: Afib HR 80's. - Labs Result Diagrams: 08/21/18 11:45 08/20/18 04:38 Troponin/CKMB Troponin I 0.016 ng/mL (< 0.028) 08/19/18 06:15 - Assessment/Plan 1. Pneumonia, possible aspiration. 2. Afib RVR, rate controlled. 3. Acute hypoxic respiratory insufficiency. 4. Hx of GI bleed. 5. Anemia PLAN: - Continue rate control with IV dilt drip. - Switch to PO once swallow study done and safe to take PO. - Not a candidate for anticoagulation due to GI bleeding.
--- NOTE | 2018-08-21 15:00 | RAD ---
RADIOGRAPH CHEST 1 VIEW: Date: 08/21/2018. Time: 10:49 a.m. HISTORY: An 88-year-old female with diminished breath sounds. COMPARISON: 08/18/2018. FINDINGS: Previously demonstrated airspace densities in the right mid and lower lung zones remain, including ri ght perihilar region. Now, the right upper lung zone appears diffusely hazy, perhaps representing po steriorly layering right pleural effusion. There is new small airspace opacity in the medial aspect of the left lower lobe lung base, and another new finding of silhouetting of the left hemidiaphragm. The left mid and upper lung zones remain relatively clear. No pneumothorax identified. IMPRESSION: 1. Bilateral pleural effusions, right greater than left. 2. Extensive airspace density/consolidation in right perihilar region. right lower lobe, and right m iddle lobe, are similar in appearance to previous study. 3. Interval development of air space density in the medial base of left lower lobe. PRAFUL [] POS: CHASE
--- NOTE | 2018-08-21 16:27 | PDOC.PN ---
- Subjective Encounter Start Date: 08/21/18 Encounter Start Time: 10:00 Subjective: pt up on bipap - Objective Resuscitation Status - Order Detail: 08/19/18 16:06 Resuscitation Status Routine Resuscitation Status: DNAR: NO Resuscitation Discussed with: daughter Vital Signs & Weight: Vital Signs (12 hours) Temp Pulse Pulse Pulse Pulse Resp BP 08/21/18 15:28 98.4 F 91 33 H 08/21/18 14:20 28 H 08/21/18 14:18 101 H 33 H 08/21/18 14:10 98.2 F 103 H 36 H 08/21/18 13:55 98.2 F 107 H 39 H 08/21/18 11:25 98.5 F 95 30 H 08/21/18 11:05 96 101 H 94/62 08/21/18 10:29 35 H 08/21/18 10:15 103 H 35 H 08/21/18 08:00 40 H 08/21/18 07:48 98.8 F 122 H 38 H 08/21/18 06:28 08/21/18 06:25 108 H 24 H BP BP Pulse Ox Pulse Ox Pulse Ox 08/21/18 15:28 95/54 L 94 L 08/21/18 14:20 93 L 08/21/18 14:18 95 08/21/18 14:10 92/57 L 95 08/21/18 13:55 99/35 L 95 08/21/18 11:25 94/62 96 08/21/18 11:05 99/61 99 94 L 08/21/18 10:29 95 08/21/18 10:15 94 L 08/21/18 08:00 90 L 08/21/18 07:48 119/67 90 L 08/21/18 06:28 90 L 08/21/18 06:25 100 Weight Weight 128 lb 15.527 oz I&O: 08/20/18 08/21/18 08/22/18 06:59 06:59 06:59 Intake Total 690 Balance 690 Result Diagrams: 08/21/18 11:45 08/20/18 04:38 Phys Exam - Physical Examination Neck: no nodes, no JVD, supple, full ROM decrease breath sound to right lung irregular irregular Gastrointestinal: soft, non-tender, no distention, positive bowel sounds Dx/Plan (1) Acute hypercapnic respiratory failure Code(s): J96.02 - ACUTE RESPIRATORY FAILURE WITH HYPERCAPNIA Status: Acute (2) Atrial fibrillation with RVR Code(s): I48.91 - UNSPECIFIED ATRIAL FIBRILLATION Status: Acute (3) Aspiration pneumonia Code(s): J69.0 - PNEUMONITIS DUE TO INHALATION OF FOOD AND VOMIT Status: Acute (4) Anemia Code(s): D64.9 - ANEMIA, UNSPECIFIED Status: Acute - Plan will transfuse one unit of blood -: will decrease cardizem drip to 5 due to low bp -: consider lasix if bp allows -: pt's overall prognosis is poor. Daughter updated * . Review of Systems - Review of Systems Other: unable to obtain - Medications/Allergies Allergies/Adverse Reactions: Allergies Allergy/AdvReac Type Severity Reaction Status Date / Time cephalexin [From Keflex] Allergy Mild Verified 08/21/18 13:15 ibuprofen Allergy Mild "DIZZY" Verified 08/21/18 13:16 rivaroxaban [From Xarelto] Allergy Mild Verified 08/21/18 13:16 codeine [Codeine] Allergy "DIZZY" Verified 08/21/18 13:16 Medications: Current Medications Acetaminophen (Tylenol) 650 mg PO Q4H PRN PRN Reason: Headache/Fever/Mild Pain (1-3) Amiodarone HCl (Cordarone) 200 mg PO DAILY [facility] Last Admin: 08/21/18 09:24 Dose: 200 mg Aspirin (Ecotrin) 81 mg PO BID [facility] Last Admin: 08/21/18 09:24 Dose: 81 mg Piperacillin Sod/Tazobactam (Sod 3.375 gm/ Sodium Chloride) 100 mls @ 200 mls/ hr IVPB Q6HR [facility] Last Admin: 08/21/18 11:19 Dose: 100 mls Dextrose/Sodium Chloride (D5 0.9% Ns) 1,000 mls @ 50 mls/hr IV .Q20H [facility] Last Admin: 08/21/18 00:20 Dose: 1,000 mls Diltiazem HCl 125 mg/ Sodium (Chloride) 125 mls @ 5 mls/hr IVPB INF [facility]; Protocol Last Admin: 08/21/18 04:40 Dose: 125 mls Ipratropium [place] (Atrovent) 2.5 ml NEB [id number] [facility] Last Admin: 08/21/18 14:18 Dose: 2.5 ml Levothyroxine Sodium (Synthroid) 100 mcg PO DAILY [facility] Last Admin: 08/21/18 09:24 Dose: 100 mcg Melatonin (Melatonin) 3 mg PO HS [facility] Last Admin: 08/20/18 20:57 Dose: 3 mg Polyethylene Glycol (Miralax) 17 gm PO DAILY [facility] Last Admin: 08/21/18 09:35 Dose: 17 gm Senna/Docusate Sodium (Senokot S) 2 tab PO BID PRN PRN Reason: Constipation
[2018-08-21] MEDS: Melatonin 3 MG TAB PO SCH (21:34)
[2018-08-22] MEDS: Piperacillin/Tazobactam 3.375 GM in Sodium Chloride 0.9% 100 ML IVPB SCH ×5 (00:02→23:53)
[2018-08-22] MEDS: Ipratropium Bromide 2.5 ml Neb NEB SCH ×6 (02:29→23:48)
[2018-08-22] MEDS: Dextrose 5 % And 0.9 % NaCl 1,000 ML IV SCH (09:36)
[2018-08-22] MEDS: Amiodarone 200 MG TAB PO SCH (09:37)
[2018-08-22] MEDS: Polyethylene Glycol 3350 17 GM Packet PO SCH (09:37)
[2018-08-22] MEDS: Levothyroxine Sodium 100 MCG TAB PO SCH (09:37)
[2018-08-22] MEDS: Aspirin 81 mg Enteric Coated Tablet PO SCH ×2 (09:37→21:23)
--- NOTE | 2018-08-22 11:07 | PDOC.CTH ---
Cardiology Progress Note - Subjective She is more awake today and off BiPAP. Slight improvement. Still very weak. - Objective Vital Signs Temp Pulse Resp BP Pulse Ox 08/22/18 10:46 117 H 45 H 90 L 08/22/18 10:44 111 H 44 H 91 L 08/22/18 08:58 99.8 F H 111 H 26 H 106/68 91 L 08/22/18 07:02 107 H 44 H 92 L 08/22/18 06:56 92 L 08/22/18 06:53 99 24 H 92 L 08/22/18 04:00 98.9 F 107 H 40 H 118/65 92 L 08/22/18 02:30 93 L 08/22/18 02:29 93 L 08/22/18 00:32 97.4 F L 105 H 32 H 106/61 93 L 08/21/18 23:36 109 H 34 H 93 L 08/21/18 23:35 93 L Weight 128 lb 15.527 oz 08/21/18 08/22/18 08/23/18 06:59 06:59 06:59 Intake Total 1908 400 Balance 1908 400 - Physical Examination General/Neuro: NAD Neck: no JVD present Lungs: unlabored respirations Heart: other: (Irreg irreg) Abdomen: NT/ND Extremities: other: (no edema) - Telemetry Telemetry Rhythm: Afib HR 120's. - Labs Result Diagrams: 08/21/18 11:45 08/20/18 04:38 Troponin/CKMB Troponin I 0.016 ng/mL (< 0.028) 08/19/18 06:15 - Assessment/Plan 1. Pneumonia, possible aspiration. 2. Afib RVR, rate controlled. 3. Acute hypoxic respiratory insufficiency. 4. Hx of GI bleed. 5. Anemia PLAN: - Continue rate control with IV dilt drip. will increase to 10/hr - Not a candidate for anticoagulation due to GI bleeding and anemia. - Consider blood transfusion.
--- NOTE | 2018-08-22 13:55 | PRG ---
DATE OF SERVICE: 08/22/2018 SUBJECTIVE: This patient is doing poorly. There has been no significant change overnight. OBJECTIVE: VITAL SIGNS: Temperature is 99.6, pulse 118, respirations 20, O2 saturation 94%, and blood pressure 113/82. HEENT: She has bruising on her face from the CPAP mask. NECK: No bruits. LUNGS: Diminished breath sounds throughout. Poor air movement. CARDIAC: S1 and S2, irregular. ABDOMEN: Soft, nontender. EXTREMITIES: No edema. ASSESSMENT: 1. Aspiration pneumonia. 2. Kyphoscoliosis. 3. Chronic hypoxemic respiratory failure. PLAN: Continue supportive care with noninvasive ventilation. She continues to have a do not attempt resuscitation order on the chart. She is being rate controlled with diltiazem and amiodarone. She is receiving IV antibiotics. It would to be very hard for me to see her surviving this hospitalization. Job ID: [id number]
--- NOTE | 2018-08-22 19:10 | PDOC.PN ---
- Subjective Encounter Start Date: 08/22/18 Encounter Start Time: 18:55 Subjective: f/u for aspiration pneumonia, resp failure on BiPAP receiving Zosyn. Remain -: on Diltiazem gtt with variable rate control of A-fib. - Objective Resuscitation Status - Order Detail: 08/19/18 16:06 Resuscitation Status Routine Resuscitation Status: DNAR: NO Resuscitation Discussed with: daughter MAYR Reviewed: Yes Vital Signs & Weight: Vital Signs (12 hours) Temp Pulse Resp BP Pulse Ox 08/22/18 18:55 109 H 25 H 91 L 08/22/18 18:54 91 L 08/22/18 16:00 99.2 F 117 H 27 H 127/73 94 L 08/22/18 14:48 110 H 20 94 L 08/22/18 14:47 110 H 25 H 94 L 08/22/18 12:00 99.6 F 118 H 28 H 113/82 94 L 08/22/18 10:46 117 H 45 H 90 L 08/22/18 10:44 111 H 44 H 91 L 08/22/18 08:58 99.8 F H 111 H 26 H 106/68 91 L 08/22/18 08:00 92 L Weight Weight 128 lb 15.527 oz I&O: 08/21/18 08/22/18 08/23/18 06:59 06:59 06:59 Intake Total 1908 1100 Balance 1908 1100 Result Diagrams: 08/21/18 11:45 08/20/18 04:38 Additional Labs: Microbiology 08/19/18 06:16 Nasal swab Influenza Types A,B Direct EIA - Final 08/18/18 20:52 Stool - Pending Stool Occult Blood (ALLAN) - Final 08/18/18 20:45 Urine Straight Catheter Urine Culture - Final NO GROWTH AT 36 HOURS 08/18/18 21:34 Venous blood - Right Arm Blood Culture - Preliminary NO GROWTH AT 48 HOURS 08/18/18 20:22 Venous blood - Left Arm Blood Culture - Preliminary NO GROWTH AT 48 HOURS Laboratory Tests 08/19/18 08/20/18 10:03 04:38 WBC 9.6 12.1 H Hgb 8.9 L 7.2 L Radiology Reviewed by me: Yes (PCXR - bilat pneumonia R>L) EKG Reviewed by me: Yes (Tele = A-fib in low 100's) Phys Exam - Physical Examination ill-appearing in resp distress HEENT: PERRLA, sclera anicteric, oral pharynx no lesions Neck: no nodes, no JVD, supple, full ROM coarse sounds in bases bilat tachycardic S1, S2 Cardiovascular: irregular Gastrointestinal: soft, non-tender, no distention, positive bowel sounds Musculoskeletal: no edema, pulses present Neurological: normal sensation lethargic Skin: normal turgor, cap refill <2 seconds Dx/Plan (1) Acute hypercapnic respiratory failure Code(s): J96.02 - ACUTE RESPIRATORY FAILURE WITH HYPERCAPNIA Status: Acute Comment: Multifactorial given hx of COPD, aspiration pneumonia, continue BiPAP NIMV, pulmonary supportive measures (2) Aspiration pneumonia Code(s): J69.0 - PNEUMONITIS DUE TO INHALATION OF FOOD AND VOMIT Status: Acute Qualifiers: Laterality: right Comment: Suspected, continue Zosyn, Duonebs, pulmonary support (3) Atrial fibrillation with RVR Code(s): I48.91 - UNSPECIFIED ATRIAL FIBRILLATION Status: Acute Comment: Continue Amiodarone, Diltiazem gtt (4) Physical deconditioning Code(s): R53.81 - OTHER MALAISE Status: Chronic Comment: Severe deconditioning likely progressive and end-stage process (5) Macrocytic anemia Code(s): D53.9 - NUTRITIONAL ANEMIA, UNSPECIFIED Status: Chronic Comment: Check B12/Folate, serial CBC, s/p 1u PRBC's - Plan continue antibiotics, social media executive, respiratory therapy, DVT proph w/SCDs Continue pulmonary support -: BiPAP NIMV -: Continue Zosyn -: Continue Duonebs -: AM lab: CBC, B12/Folate * Code Status: DNR
[2018-08-22] MEDS: Melatonin 3 MG TAB PO SCH (21:24)
[2018-08-22] MEDS: Diltiazem 125 MG in Sodium Chloride 0.9% 100 ML IVPB SCH (21:33)
[2018-08-23] MEDS: Ipratropium Bromide 2.5 ml Neb NEB SCH ×6 (02:16→22:52)
[2018-08-23 05:25] LABS: Band 5 % (5-11); Hemoglobin 8.9 g/dL (12.0-16.0); Lymphocytes 2 % (21-51); MDiff Complete? YES; Mean Corpuscular HGB CONC 30.9 g/dL (32.0-36.0); Mean Corpuscular Hemoglobin 30.5 pg (27.0-31.0); Mean Corpuscular Volume 98.6 fL (78.0-98.0); Mean Platelet Volume 7.8 fL (7.4-10.4); Monocytes 3 % (0-10); Neutrophil 90 % (42-75); Platelet Count 235 thou/uL (130-400); Platelet Morphology Comment Appears Adequate; RBC Distribution Width 14.6 % (11.5-14.5); Red Blood Cell (RBC) Count 2.93 mill/uL (4.20-5.40); White Blood Cell (WBC) Count 11.1 thou/uL (4.8-10.8)
[2018-08-23 06:16] LABS: Folate (Folic Acid) 16.8 ng/mL (7.0-31.4)
[2018-08-23] MEDS: Piperacillin/Tazobactam 3.375 GM in Sodium Chloride 0.9% 100 ML IVPB SCH ×3 (06:37→18:25)
[2018-08-23] MEDS: Amiodarone 200 MG TAB PO SCH (09:20)
[2018-08-23] MEDS: Aspirin 81 mg Enteric Coated Tablet PO SCH ×2 (09:20→20:40)
[2018-08-23] MEDS: Polyethylene Glycol 3350 17 GM Packet PO SCH (11:32)
--- NOTE | 2018-08-23 14:50 | PRG ---
DATE OF SERVICE: 08/23/2018 SUBJECTIVE: Ms. Dominguez apparently has been on BiPAP over the weekend more than she has been off BiPAP. She was wearing it when I rounded on her. OBJECTIVE: VITAL SIGNS: She is afebrile. Heart rate is in the 80s, respiratory rates in the 20s to low 30s, oximetry is in the mid 90s, blood pressure 93/59. LUNGS: Remarkable for rhonchi. HEART: Regular rhythm. ABDOMEN: Soft. IMPRESSION: 1. Pneumonia most likely aspiration mediated. 2. Dementia that is fairly advanced with extreme deconditioning. 3. Atrial fibrillation with rapid ventricular response on admission. I really do not see how she will survive very much longer with her extreme deconditioned state and respiratory muscle weakness. There is no family in the room when I rounded on her today. Job ID: [id number]
[2018-08-23] MEDS: Levothyroxine Sodium 100 MCG TAB PO SCH (14:54)
--- NOTE | 2018-08-23 15:30 | PQF ---
DATE: 08-23-18 ATTN : DR. SEVEN ANAND Please exercise your independent, professional judgment in responding to the clarification form. Clinical indicators are provided on the bottom of this form for your review Please check appropriate box(s) to clarify if the following diagnosis has been ruled in or ruled out: SEPSIS [ ] Ruled in diagnosis [ ] Continue to treat [ ] Resolved [ x ] Ruled out diagnosis [ ] Other diagnosis [ ] Unable to determine In addition, please specify: Present on Admission (POA): [ ] Yes [ ] No [ x ] Unable to determine For continuity of documentation, please document condition throughout progress notes and discharge summary. Thank You. CLINICAL INDICATORS - SIGNS / SYMPTOMS / LABS ER DX: PNEUMONIA, A FIB WITH RVR, SEPSIS CONSULT NOTE DR. WOO 08-19-18: ACUTE HYPOXIC HYPERCAPNIC RESPIRATORY FAILURE SECONDARY TO PNEUMONIA, SEPSIS SECONDARY TO PNEUMONIA WBC: 08-18-18: 10.7 08-20-18: 12.1 08-21-18: 14.2 08-23-18: 11.1 TEMP: ER: 99.2, 100.8 ( RECTAL), 100.0 ( RECTAL) PULSE: ER: 100, 123, 116, 119, 116, 122 RR: ER: 30, 24, 25, 28, 40, 38, 38 RISK FACTORS: H&P: PNEUMONIA LIKELY POSSIBLE ASPIRATION TREATMENTS: ER: VANCOMYCIN IV, ZOSYN IV, IVF NS (This form is maintained as a part of the permanent medical record) 2014 [employer]. All Rights Reserved [email or web address] Office: [phone] [facility]
--- NOTE | 2018-08-23 16:36 | PDOC.PN ---
- Subjective Encounter Start Date: 08/23/18 Encounter Start Time: 16:30 Subjective: f/u for hypoxic resp failure, asp PNA on Zosyn and BiPAP. Pt states she is -: tired of the mask and wearing the BiPAP. - Objective Resuscitation Status - Order Detail: 08/19/18 16:06 Resuscitation Status Routine Resuscitation Status: DNAR: NO Resuscitation Discussed with: daughter MARY Reviewed: Yes Vital Signs & Weight: Vital Signs (12 hours) Temp Pulse Pulse Pulse Resp BP BP 08/23/18 15:16 98.8 F 91 30 H 08/23/18 14:21 98 34 H 08/23/18 13:30 82 90 123/62 101/85 08/23/18 10:47 98.0 F 89 24 H 08/23/18 10:19 88 25 H 08/23/18 10:14 90 20 08/23/18 08:00 08/23/18 07:32 80 08/23/18 07:31 83 32 H 08/23/18 07:16 98.3 F 99 16 BP Pulse Ox Pulse Ox Pulse Ox 08/23/18 15:16 117/69 97 08/23/18 14:21 96 08/23/18 13:30 96 95 08/23/18 10:47 93/59 L 95 08/23/18 10:19 95 08/23/18 10:14 95 08/23/18 08:00 98 08/23/18 07:32 95 08/23/18 07:31 95 08/23/18 07:16 111/76 96 Weight Weight 128 lb 15.527 oz I&O: 08/22/18 08/23/18 08/24/18 06:59 06:59 06:59 Intake Total 1908 1660 Balance 1908 1660 Result Diagrams: 08/23/18 04:43 08/20/18 04:38 Additional Labs: Microbiology 08/19/18 06:16 Nasal swab Influenza Types A,B Direct EIA - Final 08/18/18 20:52 Stool - Pending Stool Occult Blood (ALLAN) - Final 08/18/18 20:45 Urine Straight Catheter Urine Culture - Final NO GROWTH AT 36 HOURS 08/18/18 21:34 Venous blood - Right Arm Blood Culture - Preliminary NO GROWTH AT 48 HOURS 08/18/18 20:22 Venous blood - Left Arm Blood Culture - Preliminary NO GROWTH AT 48 HOURS Laboratory Tests 08/19/18 08/20/18 10:03 04:38 WBC 9.6 12.1 H Hgb 8.9 L 7.2 L EKG Reviewed by me: Yes (Tele - A-fib in low 100's) Phys Exam - Physical Examination alert, responsive HEENT: PERRLA, sclera anicteric, oral pharynx no lesions Neck: no nodes, no JVD, supple, full ROM diminished in bases bilat Respiratory: no wheezing tachycardic S1, S2 Cardiovascular: no rub, gallop, irregular Gastrointestinal: soft, non-tender, no distention, positive bowel sounds Musculoskeletal: pulses present, edema present Neurological: normal sensation, moves all 4 limbs Skin: normal turgor, cap refill <2 seconds Dx/Plan (1) Acute respiratory failure with hypoxia and hypercapnia Code(s): J96.01 - ACUTE RESPIRATORY FAILURE WITH HYPOXIA; J96.02 - ACUTE RESPIRATORY FAILURE WITH HYPERCAPNIA Status: Acute Comment: Continue intermittent BiPAP NIMV, wean MV as indicated, Atrovent nebs (2) Aspiration pneumonia Code(s): J69.0 - PNEUMONITIS DUE TO INHALATION OF FOOD AND VOMIT Status: Acute Qualifiers: Laterality: right Comment: Suspected, continue Zosyn, Duonebs, pulmonary support (3) Atrial fibrillation with RVR Code(s): I48.91 - UNSPECIFIED ATRIAL FIBRILLATION Status: Acute Comment: Continue Amiodarone, Diltiazem gtt (4) Physical deconditioning Code(s): R53.81 - OTHER MALAISE Status: Chronic Comment: Severe deconditioning likely progressive and end-stage process (5) Macrocytic anemia Code(s): D53.9 - NUTRITIONAL ANEMIA, UNSPECIFIED Status: Chronic Comment: Check B12/Folate, serial CBC, s/p 1u PRBC's - Plan plan discussed w/ family, continue antibiotics, PT/OT, social insurance analyst, respiratory therapy, DVT proph w/SCDs Stable currently -: Continue intermittent BiPAP -: Continue Zosyn -: Continue Diltiazem/Amiodarone -: AM lab: CBC * .
--- NOTE | 2018-08-23 18:07 | PRG ---
DATE OF SERVICE: SUBJECTIVE: Ms. Dominguez did not do well over the weekend. She continues to be on BiPAP. She appears weak and tired. Her heart rate appears in the 100s. She is currently on IV Cardizem. P.o. intake has been poor. OBJECTIVE: VITAL SIGNS: Blood pressure 117/69, pulse 91, temperature 98.8. LUNGS: Crackles and rhonchi noted bilaterally. HEART: Irregular regular. ABDOMEN: Soft, nontender, and nondistended. EXTREMITIES: No edema. PERTINENT LABORATORY DATA: Hemoglobin 8.9, white blood cell count 11.1. IMPRESSION: 1. Atrial fibrillation with rapid ventricular response. 2. Pneumonia. 3. Advanced age. RECOMMENDATIONS: Ms. Dominguez unfortunately appears to have worsened. At this point given her comorbidities, she is unlikely to survive her current condition. She does appear tired. I cannot give her p.o. medications given poor p.o. intake. At this point, we will continue IV Cardizem. Otherwise, I have no further recommendations. Job ID: [id number]
[2018-08-23] MEDS: Diltiazem 125 MG in Sodium Chloride 0.9% 100 ML IVPB SCH (18:25)
[2018-08-23] MEDS: Dextrose 5 % And 0.9 % NaCl 1,000 ML IV SCH (20:34)
[2018-08-23] MEDS: Melatonin 3 MG TAB PO SCH (20:40)
[2018-08-24] MEDS: Piperacillin/Tazobactam 3.375 GM in Sodium Chloride 0.9% 100 ML IVPB SCH ×4 (00:14→19:55)
[2018-08-24] MEDS: Diltiazem 125 MG in Sodium Chloride 0.9% 100 ML IVPB SCH ×2 (00:16→17:05)
[2018-08-24] MEDS: Ipratropium Bromide 2.5 ml Neb NEB SCH ×6 (02:13→22:05)
[2018-08-24 05:20] LABS: Band 1 % (5-11); Hemoglobin 8.3 g/dL (12.0-16.0); Hypochromia SLIGHT = 6-15 cells (100X) (0-5/hpf); Lymphocytes 4 % (21-51); MDiff Complete? YES; Macrocytosis SLIGHT = 6-15 cells (100X) (0-5/hpf); Mean Corpuscular HGB CONC 28.1 g/dL (32.0-36.0); Mean Corpuscular Hemoglobin 28.8 pg (27.0-31.0); Mean Platelet Volume 8.4 fL (7.4-10.4); Neutrophil 95 % (42-75); Platelet Count 196 thou/uL (130-400); Platelet Morphology Comment Appears Adequate; RBC Distribution Width 14.9 % (11.5-14.5); Red Blood Cell (RBC) Count 2.89 mill/uL (4.20-5.40); White Blood Cell (WBC) Count 9.8 thou/uL (4.8-10.8)
[2018-08-24] MEDS: Levothyroxine Sodium 100 MCG TAB PO SCH (09:09)
[2018-08-24] MEDS: Amiodarone 200 MG TAB PO SCH (09:09)
[2018-08-24] MEDS: Aspirin 81 mg Enteric Coated Tablet PO SCH ×2 (09:10→19:56)
[2018-08-24] MEDS: Polyethylene Glycol 3350 17 GM Packet PO SCH (15:31)
[2018-08-24] MEDS: Morphine 2 MG/ML SYRINGE SLOW IVP PRN ×4 (16:56→22:23)
--- NOTE | 2018-08-24 17:03 | PRG ---
DATE OF SERVICE: 08/24/2018 SUBJECTIVE: Angelica is back on full face mask BiPAP. She was off for 7 hours today. She has ongoing signs of severe muscle weakness. OBJECTIVE: VITAL SIGNS: Her respiratory rates in the 30s. Her tidal volumes are 200 to 225 mL with 15 cm of pressure support. She is afebrile. Heart rates in the 130s. She is in atrial fibrillation. LUNGS: Remarkable for rhonchi. HEART: Regular rhythm. ABDOMEN: Soft. IMPRESSION: Severe deconditioning near the end of her life. I had a 30-minute meeting with the daughter explaining all the options. I will be happy to continue to follow her. She wants to meet with family under spray mixer. Job ID: [id number]
--- NOTE | 2018-08-24 17:53 | PDOC.PN ---
- Subjective Encounter Start Date: 08/24/18 Encounter Start Time: 17:30 Subjective: f/u for resp failure, aspiration PNA and BiPAP requirements. Continues -: with persistent weakness and hypoxia but was off BiPAP on FM for -: a period of time today. Considering hospice - Objective Resuscitation Status - Order Detail: 08/19/18 16:06 Resuscitation Status Routine Resuscitation Status: DNAR: NO Resuscitation Discussed with: daughter MARY Reviewed: Yes Vital Signs & Weight: Vital Signs (12 hours) Temp Pulse Pulse Pulse Resp BP BP 08/24/18 16:16 98.0 F 132 H 38 H 08/24/18 14:16 112 H 43 H 08/24/18 11:08 97.4 F L 36 H 08/24/18 11:00 97 08/24/18 10:28 94 34 H 08/24/18 10:02 90 82 138/60 116/65 08/24/18 07:29 98.2 F 86 32 H 08/24/18 06:54 82 32 H BP Pulse Ox Pulse Ox Pulse Ox 08/24/18 16:16 108/72 08/24/18 14:16 08/24/18 11:08 94 L 08/24/18 11:00 113/71 08/24/18 10:28 93 L 08/24/18 10:02 95 96 08/24/18 07:29 120/75 99 08/24/18 06:54 95 Weight Weight 128 lb 15.527 oz I&O: 08/23/18 08/24/18 08/25/18 06:59 06:59 06:59 Intake Total 1660 640 Balance 1660 640 Result Diagrams: 08/24/18 04:25 08/20/18 04:38 Additional Labs: Microbiology 08/19/18 06:16 Nasal swab Influenza Types A,B Direct EIA - Final 08/18/18 20:52 Stool - Pending Stool Occult Blood (ALLAN) - Final 08/18/18 20:45 Urine Straight Catheter Urine Culture - Final NO GROWTH AT 36 HOURS 08/18/18 21:34 Venous blood - Right Arm Blood Culture - Preliminary NO GROWTH AT 48 HOURS 08/18/18 20:22 Venous blood - Left Arm Blood Culture - Preliminary NO GROWTH AT 48 HOURS Laboratory Tests 08/19/18 08/20/18 10:03 04:38 WBC 9.6 12.1 H Hgb 8.9 L 7.2 L EKG Reviewed by me: Yes (Tele - A-fib in 100's) Phys Exam - Physical Examination frail, ill-appearing, alert HEENT: PERRLA, sclera anicteric, oral pharynx no lesions Neck: no nodes, no JVD, supple, full ROM diminished in all arnold tachycardic S1, S2 Cardiovascular: no significant murmur, no rub, irregular Gastrointestinal: soft, non-tender, no distention, positive bowel sounds peripheral edema Musculoskeletal: pulses present Neurological: moves all 4 limbs Skin: normal turgor, cap refill <2 seconds Dx/Plan (1) Acute respiratory failure with hypoxia and hypercapnia Code(s): J96.01 - ACUTE RESPIRATORY FAILURE WITH HYPOXIA; J96.02 - ACUTE RESPIRATORY FAILURE WITH HYPERCAPNIA Status: Acute Comment: Continue intermittent BiPAP NIMV, wean MV as indicated, Atrovent nebs, appears that NIMV may not be successfully weaned (2) Aspiration pneumonia Code(s): J69.0 - PNEUMONITIS DUE TO INHALATION OF FOOD AND VOMIT Status: Acute Qualifiers: Laterality: right Comment: Suspected, continue Zosyn, Duonebs, pulmonary support (3) Atrial fibrillation with RVR Code(s): I48.91 - UNSPECIFIED ATRIAL FIBRILLATION Status: Acute Comment: Continue Amiodarone, Diltiazem gtt, rate remains variable (4) Physical deconditioning Code(s): R53.81 - OTHER MALAISE Status: Chronic Comment: Severe deconditioning likely progressive and end-stage process (5) Macrocytic anemia Code(s): D53.9 - NUTRITIONAL ANEMIA, UNSPECIFIED Status: Chronic Comment: Check B12/Folate, serial CBC, s/p 1u PRBC's - Plan plan discussed w/ family, continue antibiotics, licensed clinical social worker, respiratory therapy, DVT proph w/SCDs Continue supportive mgmt -: Palliative measures -: Considering Hospice options given end-stage process -: Continue Zosyn -: Rate control with Diltiazem/Amiodarone * .
[2018-08-24] MEDS: Melatonin 3 MG TAB PO SCH (19:56)
[2018-08-25] MEDS: Morphine 2 MG/ML SYRINGE SLOW IVP PRN ×5 (00:24→09:30)
[2018-08-25] MEDS: Piperacillin/Tazobactam 3.375 GM in Sodium Chloride 0.9% 100 ML IVPB SCH ×2 (00:31→06:09)
[2018-08-25] MEDS: Ipratropium Bromide 2.5 ml Neb NEB SCH ×2 (02:05→07:29)
[2018-08-25] MEDS: Diltiazem 125 MG in Sodium Chloride 0.9% 100 ML IVPB SCH (06:08)
[2018-08-25 07:18] VITALS: BP 121/53; TEMP 97.6
[2018-08-25] MEDS: Dextrose 5 % And 0.9 % NaCl 1,000 ML IV SCH ×2 (07:51→09:46)
--- NOTE | 2018-08-25 09:43 | PRG ---
DATE OF SERVICE: 08/24/2018 TIME: 1500 hours. SUBJECTIVE: From a cardiac standpoint, there has not been much change regarding Ms. Dominguez. She remains on full BiPAP and is unable to wean. She is significantly weak. Her atrial fibrillation remains rate controlled on 2 mg of Cardizem IV. She is unable to take p.o. meds due to her respiratory failure. OBJECTIVE: VITAL SIGNS: Stable. GENERAL: The patient is alert, awake, and oriented. HEENT: Head is atraumatic, normocephalic. BiPAP in place. CHEST: Reveals bilateral rhonchi. CARDIOVASCULAR: Irregularly irregular. ABDOMEN: Soft. EXTREMITIES: No clubbing or significant edema. IMPRESSION: 1. Atrial fibrillation with rapid ventricular response. 2. Respiratory failure. At this time, the patient shows severe decline. We were unable to wean her from BiPAP. Dr. Roy discussed with family extensively regarding long time plan of care. They are discussing end of life options. No changes today. Job ID: [id number]
[2018-08-25] MEDS: Aspirin 81 mg Enteric Coated Tablet PO SCH (09:47)
[2018-08-25] MEDS: Amiodarone 200 MG TAB PO SCH (09:47)
[2018-08-25] MEDS: Polyethylene Glycol 3350 17 GM Packet PO SCH (09:47)
[2018-08-25] MEDS: Levothyroxine Sodium 100 MCG TAB PO SCH (09:47)
--- NOTE | 2018-08-25 19:13 | DIS ---
DATE OF ADMISSION: 08/19/2018 DATE OF DISCHARGE: 08/25/2018 SUMMARY DISCHARGE DIAGNOSES: 1. Acute hypoxic hypercapnic respiratory failure secondary to aspiration pneumonia. 2. Aspiration pneumonia, suspected. 3. Atrial fibrillation with rapid ventricular response. 4. Severe physical deconditioning. 5. Macrocytic anemia. 6. Chronic obstructive pulmonary disease. CONSULTATIONS: 1. Dr. Roy with Pulmonology/Critical Care Service. 2. Dr. Jono Mayes with Cardiology Service. PERTINENT LABORATORY AND X-RAY FINDINGS: Basic metabolic profile within normal limits. Troponin I negative x2. BNP 474. Albumin 3.2. Vitamin B12 level 1960. Folate level 16.8. CBC showed a white blood cell count ranging between 9.6 to 14.2, hemoglobin ranged between 7.2 to 8.9. Blood cultures x2 dated 08/18/2018, showed no growth at 5 days. Urine culture dated 08/18/2018, showed no growth at 36 hours. Stool Hemoccult dated 08/18/2018, positive x1. Influenza A and B antigen dated 08/19/2018, negative. Portable chest x-ray dated 08/18/2018, showed focal opacity in the right lung base consistent with infectious process. CT of the brain without contrast dated 08/18/2018, showed small-vessel ischemic changes without acute process. HOSPITAL COURSE: The patient was initially admitted to the Intermediate Care Unit after presenting with generalized weakness and shortness of breath. The patient initially placed on BiPAP noninvasive mechanical ventilation with initial chest imaging concerning for right lower lobe infiltrate concerning for aspiration pneumonia. The patient was placed on broad-spectrum IV antibiotic therapy as well as given IV Solu-Medrol. The patient was also noted with associated atrial fibrillation with rapid ventricular response, initiated on a Cardizem infusion. The patient was also given digoxin and evaluated by the Cardiology Service. The patient continued on Cardizem infusion throughout the hospital course with variable rate control. The patient was unable to wean from BiPAP noninvasive mechanical ventilation even with intermittent trials with face mask and high-flow oxygen. The patient continued to clinically decline with altered mentation and severe weakness. Discussions were had with the patient's family regarding ongoing aggressive care versus palliative and comfort care. The patient's family decided to pursue hospice care, at which point, the patient transitioned to hospice care on 08/25/2018. The patient continued clinical decline and was given supportive management. The patient will receive supportive management including IV morphine sulfate and Ativan. The patient subsequently at 1822 hours. The patient's family was at bedside and decedent affairs notified. The patient was not an organ donor per protocol. Job ID: [id number]
--- NOTE | 2018-09-03 07:40 | PQF ---
[facility] Crystal Reports Winform ViewerCASA VASQUEZ SEVEN ANAND DO [id number] [facility]- 3 [id number] CLINICAL DOCUMENTATION CLARIFICATION FORM: POST DISCHARGE Addendum to original discharge summary date: ____ Late entry note date: __ Please exercise your independent, professional judgment in responding to the clarification form. Clinical indicators are provided on the bottom of this form for your review Please check appropriate box(s): [ x ] Encephalopathy: Type: [ x ] Acute [ ] Subacute [ ] Chronic Etiology: [ ] Hypertensive [ ] Metabolic [ ] Toxic [ ] Hepatic with Coma [ ] Hepatic w/o Coma [ x ] Hypoxic [ ] Septic [ ] Drug induced: [ ] Unspecified [ ] in the setting of underlying dementia [ ] Other (please specify) [ ] Transient Alteration of Awareness [ ] Other diagnosis [ ] Unable to determine In addition, please specify: Present on Admission (POA): [ x ] Yes [ ] No [ ] Unable to determine For continuity of documentation, please document condition throughout progress notes and discharge summary. Thank You. CLINICAL INDICATORS - SIGNS / SYMPTOMS / LABS CONFUSION- ED NURSING ASSESMENT, PN 08/19 DEMENTIA THAT IS FARELY ADVANCED WITH EXTREME DECONDITIONING- PN 08/23 ACUTE HYPERCAPNEIC/HYPOXIC RESPIRATORY FAILURE- H&P, PROGRESS NOTES, CONSULTS AND D/S RISK FACTORS ACUTE HYPERCAPNEIC/HYPOXIC RESPIRATORY FAILURE- A. FIB W/ RVR- H&P, PROGRESS NOTES AND D/S ASPIRATION PNEUMONIA- H&P, PROGRESS NOTES AND D/S TREATMENTS: PUT ON ANTIBIOTICS TO COVER ASPIRATION PNEUMONIA AND HOSPIRAL ACQUIRED PNEUMONIA - H&P PLACED ON BIPAP- H&P [facility] Crystal Reports Winform Viewer (This form is maintained as a part of the permanent medical record) 2014 [employer] All Rights Reserved [email or web address] [phone] MTDD
== END 2018-08-25 09:46 | disposition hospice, inpatient (51) | DRG 177 ==
LOC: ERS 19:16 → ERHOLD 08-19 00:30 → IMCU/EMU 08-19 16:36
PROVIDERS: ADMIT Internal Medicine; ATTEND Internal Medicine
PROC: 5A09457 Assistance with Respiratory Ventilation, 24-96 Consecutive Hours, Continuous Positive Airway Pressure (ICD-10-PCS; 2018-08-19)
PROC: 30230N1 Transfusion of Nonautologous Red Blood Cells into Peripheral Vein, Open Approach (ICD-10-PCS; principal; 2018-08-21)
DX: J69.0 Pneumonitis due to inhalation of food and vomit (principal); J96.02 Acute respiratory failure with hypercapnia; J96.01 Acute respiratory failure with hypoxia; I50.32 Chronic diastolic (congestive) heart failure; R64 Cachexia; G93.1 Anoxic brain damage, not elsewhere classified; J90 Pleural effusion, not elsewhere classified; J44.9 Chronic obstructive pulmonary disease, unspecified; I48.91 Unspecified atrial fibrillation; H35.30 Unspecified macular degeneration; I35.0 Nonrheumatic aortic (valve) stenosis; Z66 Do not resuscitate; D53.9 Nutritional anemia, unspecified; I25.10 Atherosclerotic heart disease of native coronary artery without angina pectoris; I73.9 Peripheral vascular disease, unspecified; Z68.23 Body mass index [BMI] 23.0-23.9, adult; M19.90 Unspecified osteoarthritis, unspecified site; M41.9 Scoliosis, unspecified; F03.90 Unspecified dementia, unspecified severity, without behavioral disturbance, psychotic disturbance, mood disturbance, and anxiety; M81.0 Age-related osteoporosis without current pathological fracture; Z51.5 Encounter for palliative care; F41.9 Anxiety disorder, unspecified; E03.9 Hypothyroidism, unspecified; Z88.6 Allergy status to analgesic agent; Z88.1 Allergy status to other antibiotic agents; Z88.5 Allergy status to narcotic agent; Z87.891 Personal history of nicotine dependence
CPT/HCPCS: 36415; 36416; 36430; 51701; 70450; 71045; 80048; 80053; 81003; 82274; 82550; 82607; 82746; 82805; 83605; 83880; 84484; 85007; 85025; 85027; 86850; 86900; 86901; 87040; 87086; 87804; 93005; 94640; 94660; 94760; 96361; 96365; 96367; A4353; J2270; J2543; J3370; J7050; J7620; P9016

== ENCOUNTER 2018-08-25 09:52 | Inpatient (IN) | payer OTHER ==
[2018-08-25 10:07] VITALS: BMI 24.1
[2018-08-25] MEDS ORDERED: Lorazepam 2 MG/ML VIAL SLOW IVP PRN ×2 (10:43→10:44)
[2018-08-25] MEDS ORDERED: Morphine 2 MG/ML SYRINGE SLOW IVP PRN (10:48)
[2018-08-25] MEDS: Morphine 2 MG/ML SYRINGE SLOW IVP PRN ×2 (11:33→12:35)
--- NOTE | 2018-08-25 19:05 | PRG ---
DATE OF SERVICE: SUBJECTIVE: Ms. Dominguez's status is unchanged. She appears tired. She continues to be weak. She has had no significant improvement in her status. OBJECTIVE: VITAL SIGNS: Blood pressure 110/70, pulse 1 teens to 120s. GENERAL: She currently continues to require BiPAP. She is somnolent. LUNGS: Crackles and rhonchi bilaterally. HEART: Irregular irregular. ABDOMEN: Soft, nontender, nondistended. EXTREMITIES: 2+ pitting edema. IMPRESSION: 1. Atrial fibrillation. 2. Respiratory failure. 3. Advanced age. RECOMMENDATIONS: I had a discussion with the daughter today about how to proceed. At this point, I feel hospice is likely given her current condition. She has not had significant improvement and continues to weaken. The family does agree and they were ready for hospice. Hospice will be consulted. Job ID: [id number]
--- NOTE | 2018-08-26 15:17 | DIS ---
DATE OF ADMISSION: 08/25/2018 DATE OF DISCHARGE: 08/25/2018 SUMMARY: HISTORY OF PRESENTING ILLNESS: This is a very pleasant 88-year-old female, who was admitted to Hospice for acute hypoxic hypercapnic respiratory failure due to pneumonia. The patient had multiple comorbidities. The family chose Hospice, and the patient was pronounced on August 25 at 6:24 p.m. DISPOSITION: [facility]. No complication was reported. Family was aware. Job ID: [id number] MTDD
== END 2018-08-25 18:20 | disposition expired | DRG 951 ==
LOC: IMCU/EMU 09:52
PROVIDERS: ADMIT Internal Medicine Nephrology; ATTEND Internal Medicine Nephrology
PROC: 5A09357 Assistance with Respiratory Ventilation, Less than 24 Consecutive Hours, Continuous Positive Airway Pressure (ICD-10-PCS; principal; 2018-08-25)
DX: Z51.5 Encounter for palliative care (principal); J69.0 Pneumonitis due to inhalation of food and vomit; J96.01 Acute respiratory failure with hypoxia; J96.02 Acute respiratory failure with hypercapnia; I50.32 Chronic diastolic (congestive) heart failure; I48.91 Unspecified atrial fibrillation; Z66 Do not resuscitate; J44.9 Chronic obstructive pulmonary disease, unspecified; D53.9 Nutritional anemia, unspecified; H35.30 Unspecified macular degeneration; I35.0 Nonrheumatic aortic (valve) stenosis; Z99.81 Dependence on supplemental oxygen; Z87.891 Personal history of nicotine dependence
CPT/HCPCS: J2060; J2270